=== PATIENT | female | born 1975 | race Asian ===

== ENCOUNTER 2019-01-04 17:11 | Inpatient (IN) | payer OTHER ==
--- NOTE | 2019-01-04 18:15 | PDOC ---
History of Present Illness - General Chief Complaint: Chest Pain Stated Complaint: SENT BY PCP Time Seen by Provider: 01/04/19 18:15 - History of Present Illness Initial Comments: 43 year old female PMH of HTN (labile) presenting with nausea, vomiting, and chest pain for the past few weeks with multiple ED visits with negative cardiac and abdominal workup. She saw Dr. Lucero who wanted to admit her for an endocrine workup. 01/04/19 18:31 Past History - Past Medical History Allergies/Adverse Reactions: Allergies Allergy/AdvReac Type Severity Reaction Status Date / Time Iodinated Contrast- Oral and Allergy Verified 01/04/19 17:27 IV Dye metoclopramide HCl AdvReac Verified 01/04/19 17:26 [From [facility]] Home Medications: Ambulatory Orders Carvedilol 3.125 mg PO DAILY 02/03/17 Chlorthalidone 25 mg PO DAILY 02/03/17 Duloxetine HCl [Cymbalta] 60 mg PO DAILY 02/03/17 Famotidine [Pepcid] 20 mg PO DAILY #7 tablet 02/03/17 Hydrocodone/Acetaminophen [Vicodin Es 7.5-300 mg Tablet] 1 each PO TID 02/03/17 Hydroxyzine HCl 50 mg PO BID 02/03/17 Methylprednisolone [Medrol Dose Justin] 4 mg PO ASDIR #21 tablet 02/03/17 Tizanidine HCl 4 mg PO TID 02/03/17 COPD: No HTN: Yes - Suicide/Smoking/Psychosocial Hx Smoking History: Never smoked Have you smoked in the past 12 months: No Hx Alcohol Use: No Drug/Substance Use Hx: No Substance Use Type: None *Physical Exam - Vital Signs Last Vital Signs Temp Pulse Resp BP Pulse Ox 97.4 F L 112 H 18 136/60 99 01/04/19 17:24 01/04/19 17:24 01/04/19 17:24 01/04/19 17:24 01/04/19 17:24 Moderate Sedation - Procedure Monitoring Vital Signs: Procedure Monitoring Vital Signs Temperature 97.4 F L 01/04/19 17:24 Pulse Rate 112 H 01/04/19 17:24 Respiratory Rate 18 01/04/19 17:24 Blood Pressure 136/60 01/04/19 17:24 O2 Sat by Pulse Oximetry (%) 99 01/04/19 17:24 *DC/Admit/Observation/Transfer - Referrals Referrals: Zak Bhandari MD [Primary Care Provider] - - Patient Instructions - Post Discharge Activity
[2019-01-04] MEDS ORDERED: SODIUM CHLORIDE 0.9% 500 ML INFUS.BAG IV ONE (18:41)
--- NOTE | 2019-01-04 19:07 | PDOC ---
Attending Attestation - HPI HPI: 01/04/19 21:32 The patient is a 43 year old female, with a significant past medical history of HTN (labile), who presents to the emergency department with, multiple weeks of chest pain with associated nausea and vomiting. Patient notes multiple visits to various ERs at which time she has had a negative stress test and ECHO. As per patients PCP Dr. Bhandari, he would like her admitted for endocrine workup. She denies recent fevers, chills, headache or dizziness. She denies recent diarrhea or constipation. She denies recent dysuria, frequency, urgency or hematuria. - Physicial Exam PE: 01/04/19 21:32 Agree with resident exam. <Cory Rios - Last Filed: 01/04/19 21:32> - Resident Resident Name: Harish Gee - ED Attending Attestation I have performed the following: I have examined & evaluated the patient, The case was reviewed & discussed with the resident, I agree w/resident's findings & plan - Medical Decision Making 01/04/19 21:46 43-year-old female sent in by her primary care physician for admission due to uncontrolled blood pressures <Megan Haro - Last Filed: 01/04/19 21:47> Attestations - Attestations 01/04/19 21:33 Documentation prepared by Cory Rios, acting as medical oncologist for Megan Haro DO. <Cory Rios - Last Filed: 01/04/19 21:32>
[2019-01-04 19:35] LABS: BASO % 0.5 % (0-2.0); EOS % 1.6 % (0-4.5); HEMATOCRIT 34.8 % (32.4-45.2); HEMOGLOBIN 11.8 GM/dL (10.7-15.3); LYMPH % 22.4 % (8-40); MCH 29.4 pg (25.7-33.7); MCHC 33.9 g/dl (32.0-36.0); MEAN CELL VOLUME 86.6 fl (80-96); MEAN PLT VOLUME 7.2 fl (7.5-11.1); NEUT % 66.5 % (42.8-82.8); PLATELET COUNT 349 K/MM3 (134-434); RBC 4.02 M/mm3 (3.60-5.2); RDW 14.8 % (11.6-15.6); WHITE BLOOD COUNT 7.2 K/mm3 (4.0-10.0)
[2019-01-04 19:49] LABS: INR 0.95 (0.83-1.09); PROTHROMBIN TIME (PATIENT) 11.2 SEC (9.7-13.0)
[2019-01-04 20:00] LABS: ALBUMIN 3.8 g/dl (3.4-5.0); ALK PHOS 105 U/L (45-117); ANION GAP 9 MMOL/L (8-16); BILIRUBIN,TOTAL 0.3 mg/dL (0.2-1); BLOOD UREA NITROGEN 19 mg/dL (7-18); CALCIUM 9.3 mg/dL (8.5-10.1); CHLORIDE 102 mmol/L (98-107); CO2 25 mmol/L (21-32); GLUCOSE,RANDOM 97 mg/dL (74-106); POTASSIUM 3.5 mmol/L (3.5-5.1); SGOT/AST 23 U/L (15-37); SGPT/ALT 41 U/L (13-61); SODIUM 136 mmol/L (136-145); TOT PROT 7.8 g/dl (6.4-8.2)
[2019-01-04 20:31] LABS: URINE APPEARANCE SLCLOUDY; URINE BILIRUBIN NEGATIVE (<2.0 mg/dL); URINE COLOR YELLOW; URINE GLUCOSE (UA) NEGATIVE (NEGATIVE); URINE KETONE NEGATIVE (NEGATIVE); URINE LEUK ESTERASE NEGATIVE (NEGATIVE); URINE NITRITE NEGATIVE (NEGATIVE); URINE PROTEIN 1+ (NEGATIVE); URINE UROBILINOGEN NEGATIVE mg/dL (0.2-1.0)
[2019-01-04 20:51] LABS: EPI CELLS MANY /HPF (FEW); URINE BACTERIA RARE /hpf (NONE SEEN); URINE HYALINE CAST 2 /lpf; URINE MUCUS FEW
--- NOTE | 2019-01-04 21:11 | HP ---
CHIEF COMPLAINT: chest pain PCP: Elisabet HISTORY OF PRESENT ILLNESS: 43 year old female, with a significant past medical history of labile hypertension,nausea vomiting,hypokalemia,chest pain,prior workup, gi and cardiac negative,has been on several antihypertensive meds which failed to control bp. she notes recent episode left her feeling light headed and nauseas. c/o some chest pain but recent negative cardiac stress test ER course was notable for: (1) cxr (2) lower ext vascular study (3) Recent Travel: no PAST MEDICAL HISTORY: labile hypertension PAST SURGICAL HISTORY: no Social History: Smoking:no Alcohol: no Drugs: no Family History: Allergies Iodinated Contrast- Oral and IV Dye Allergy (Verified 01/04/19 17:27) metoclopramide HCl [From Reglan] Adverse Reaction (Verified 01/04/19 17:26) STATES MAKE HER VOMIT MORE HOME MEDICATIONS: Home Medications Medication Instructions Recorded Cefuroxime Axetil [Cefuroxime] 250 mg PO BID 01/04/19 Clonidine Patch [Catapres Tts 0.1 mg TD WEEKLY 01/04/19 Patch -] Diazepam [Valium] 5 mg PO BID 01/04/19 Gabapentin 300 mg PO HS 01/04/19 Hydralazine HCl 25 mg PO TID 01/04/19 Hydroxyzine HCl 25 mg PO TID 01/04/19 Propranolol HCl 10 mg PO TID 01/04/19 Zolpidem Tartrate 10 mg PO HS 01/04/19 REVIEW OF SYSTEMS CONSTITUTIONAL: Absent: fever, chills, diaphoresis, generalized weakness, malaise, loss of appetite, weight change HEENT: Absent: rhinorrhea, nasal congestion, throat pain, throat swelling, difficulty swallowing, mouth swelling, ear pain, eye pain, visual changes CARDIOVASCULAR: Absent: syncope, palpitations, irregular heart rate, lightheadedness, peripheral edema present - chest pain, RESPIRATORY: Absent: cough, shortness of breath, dyspnea with exertion, orthopnea, wheezing, stridor, hemoptysis GASTROINTESTINAL: Absent: abdominal pain, abdominal distension, nausea, vomiting, diarrhea, constipation, melena, hematochezia GENITOURINARY: Absent: dysuria, frequency, urgency, hesitancy, hematuria, flank pain, genital pain MUSCULOSKELETAL: Absent, arthralgia, joint swelling, back pain, neck pain present- : myalgia SKIN: Absent: rash, itching, pallor HEMATOLOGIC/IMMUNOLOGIC: Absent: easy bleeding, easy bruising, lymphadenopathy, frequent infections ENDOCRINE: Absent: unexplained weight gain, unexplained weight loss, heat intolerance, cold intolerance NEUROLOGIC: Absent: headache, focal weakness or paresthesias, dizziness, unsteady gait, seizure, mental status changes, bladder or bowel incontinence PSYCHIATRIC: Absent: anxiety, depression, suicidal or homicidal ideation, hallucinations. PHYSICAL EXAMINATION Vital Signs - 24 hr 01/04/19 01/04/19 01/04/19 17:24 19:58 20:24 Temperature 97.4 F L Pulse Rate 112 H Pulse Rate [ 112 H Apical] Respiratory 18 20 Rate Blood Pressure 136/60 Blood Pressure 160/100 [Right Arm] O2 Sat by Pulse 99 99 100 Oximetry (%) GENERAL: Awake, alert, and fully oriented, in no acute distress. HEAD: Normal with no signs of trauma. EYES: Pupils equal, round and reactive to light, extraocular movements intact, sclera anicteric, conjunctiva clear. No lid lag. EARS, NOSE, THROAT: Ears normal, nares patent, oropharynx clear without exudates. Moist mucous membranes. NECK: Normal range of motion, supple without lymphadenopathy, JVD, or masses. LUNGS: Breath sounds equal, clear to auscultation bilaterally. No wheezes, and no crackles. No accessory muscle use. chest- anterior chest reproducible pain on lower sternal palpation HEART: Regular rate and rhythm, normal S1 and S2 without murmur, rub or gallop. ABDOMEN: Soft, nontender, not distended, normoactive bowel sounds, no guarding, no rebound, no masses. No hepatomegaly or splenomegaly. MUSCULOSKELETAL: Normal range of motion at all joints. No bony deformities or tenderness. No CVA tenderness. UPPER EXTREMITIES: 2+ pulses, warm, well-perfused. No cyanosis. No clubbing. No peripheral edema. LOWER EXTREMITIES: 2+ pulses, warm, well-perfused. No calf tenderness. No peripheral edema. NEUROLOGICAL: Cranial nerves II-XII intact. Normal speech. Normal gait. PSYCHIATRIC: Cooperative. Good eye contact. Appropriate mood and affect. SKIN: Warm, dry, normal turgor, no rashes or lesions noted, normal capillary refill. Laboratory Results - last 24 hr 02/27/19 02/27/19 02/27/19 18:38 18:38 18:38 WBC 7.2 RBC 4.02 Hgb 11.8 Hct 34.8 MCV 86.6 MCH 29.4 MCHC 33.9 RDW 14.8 Plt Count 349 MPV 7.2 L Absolute Neuts (auto) 4.8 Neutrophils % 66.5 Lymphocytes % 22.4 Monocytes % 9.0 Eosinophils % 1.6 Basophils % 0.5 Nucleated RBC % 0 PT with INR 11.20 INR 0.95 Sodium 136 Potassium 3.5 Chloride 102 Carbon Dioxide 25 Anion Gap 9 BUN 19 H Creatinine 1.0 Creat Clearance w eGFR > 60 Random Glucose 97 Calcium 9.3 Total Bilirubin 0.3 AST 23 ALT 41 Alkaline Phosphatase 105 Troponin I < 0.02 Total Protein 7.8 Albumin 3.8 TSH Free T4 Urine Color Urine Appearance Urine pH Ur Specific [place] Urine Protein Urine Glucose (UA) Urine Ketones Urine Blood Urine Nitrite Urine Bilirubin Urine Urobilinogen Ur Leukocyte Esterase Urine WBC (Auto) Urine RBC (Auto) Ur Epithelial Cells Urine Bacteria Hyaline Casts Urine Mucus Urine HCG, Qual 01/04/19 01/04/19 01/04/19 19:09 19:09 19:27 WBC RBC Hgb Hct MCV MCH MCHC RDW Plt Count MPV Absolute Neuts (auto) Neutrophils % Lymphocytes % Monocytes % Eosinophils % Basophils % Nucleated RBC % PT with INR INR Sodium Potassium Chloride Carbon Dioxide Anion Gap BUN Creatinine Creat Clearance w eGFR Random Glucose Calcium Total Bilirubin AST ALT Alkaline Phosphatase Troponin I Total Protein Albumin TSH 2.22 Free T4 0.96 Urine Color Urine Appearance Urine pH Ur Specific [place] Urine Protein Urine Glucose (UA) Urine Ketones Urine Blood Urine Nitrite Urine Bilirubin Urine Urobilinogen Ur Leukocyte Esterase Urine WBC (Auto) Urine RBC (Auto) Ur Epithelial Cells Urine Bacteria Hyaline Casts Urine Mucus Urine HCG, Qual Negative 01/04/19 19:47 WBC RBC Hgb Hct MCV MCH MCHC RDW Plt Count MPV Absolute Neuts (auto) Neutrophils % Lymphocytes % Monocytes % Eosinophils % Basophils % Nucleated RBC % PT with INR INR Sodium Potassium Chloride Carbon Dioxide Anion Gap BUN Creatinine Creat Clearance w eGFR Random Glucose Calcium Total Bilirubin AST ALT Alkaline Phosphatase Troponin I Total Protein Albumin TSH Free T4 Urine Color Yellow Urine Appearance Slcloudy Urine pH 6.0 Ur Specific [place] 1.021 Urine Protein 1+ H Urine Glucose (UA) Negative Urine Ketones Negative Urine Blood Negative Urine Nitrite Negative Urine Bilirubin Negative Urine Urobilinogen Negative Ur Leukocyte Esterase Negative Urine WBC (Auto) 3 Urine RBC (Auto) 1 Ur Epithelial Cells Many Urine Bacteria Rare Hyaline Casts 2 Urine Mucus Few Urine HCG, Qual ekg reviewed cxr reviewed ASSESSMENT/PLAN: #Labile hypertension refractory to several medications sent here by her PCP for workup -observation -dexamethasone suppresion test -check 24 hr urine 5hiaa -am cortisol -mri brain -renin -urine vma -aldosterone #Chest pain- reproducible, most likely costochondritis, recent negative cardiac stress test. trop neg, ekg w/ no ischemic changes -ibuprofen prn if chest pain #dvt ppx -heparin sc Visit type - Emergency Visit Emergency Visit: Yes ED Registration Date: 01/04/19 Care time: The patient presented to the Emergency Department on the above date and was hospitalized for further evaluation of their emergent condition. - New Patient This patient is new to me today: Yes Date on this admission: 01/05/19 - Critical Care Critical Care patient: No
[2019-01-04] MEDS ORDERED: cloNIDine HCL 0.1 MG TABLET PO ONE (21:19)
[2019-01-04] MEDS ORDERED: cloNIDine HCL 0.1 MG TABLET ONE (22:21)
[2019-01-04] MEDS ORDERED: diazePAM 5 MG TABLET ONE (22:21)
[2019-01-04] MEDS ORDERED: hydrALAZINE HCL 25 MG TABLET (FP) ONE (22:21)
[2019-01-04] MEDS ORDERED: HEPARIN NA (PORCINE) 5,000 UNITS/ML 1ML VIAL ONE (22:22)
[2019-01-04] MEDS ORDERED: GABAPENTIN 100 MG CAPSULE (FP) ONE (22:22)
[2019-01-04] MEDS: diazePAM 5 MG TABLET PO SCH (22:36)
[2019-01-04] MEDS: hydrALAZINE HCL 25 MG TABLET (FP) PO SCH (22:36)
[2019-01-04] MEDS: HEPARIN NA (PORCINE) 5,000 UNITS/ML 1ML VIAL SQ SCH (22:36)
[2019-01-04] MEDS: GABAPENTIN 300 MG CAPSULE (FP) PO SCH (22:36)
--- NOTE | 2019-01-05 00:21 | CONSULT ---
Consult Consult Specialty:: endocrine Reason for Consultation:: uncontrolled hypertension - History of Present Illness Chief Complaint: nausea and vomiting weakness History of Present Illness: 43 year old female, with a significant past medical history of labile hypertension,nausea vomiting,hypokalemia,chest pain,prior workup, gi and cardiac negative,has been on several antihypertensive meds which failed to control bp. she notes recent episode left her feeling light headed and nauseas.she denies fever, cough diarhea or rash. - Past Medical History Cardio/Vascular: Yes: HTN Gastrointestinal: Yes: Irritable Bowel Disease Renal/: Yes: Hematuria - Alcohol/Substance Use Hx Alcohol Use: No - Smoking History Smoking history: Never smoked Have you smoked in the past 12 months: No Home Medications - Allergies Allergies/Adverse Reactions: Allergies Allergy/AdvReac Type Severity Reaction Status Date / Time Iodinated Contrast- Oral and Allergy Verified 01/04/19 17:27 IV Dye metoclopramide HCl AdvReac Verified 01/04/19 17:26 [From Reglan] - Home Medications Home Medications: Ambulatory Orders Cefuroxime Axetil [Cefuroxime] 250 mg PO BID 01/04/19 Clonidine Patch [Catapres Tts Patch -] 0.1 mg TD WEEKLY 01/04/19 Diazepam [Valium] 5 mg PO BID 01/04/19 Gabapentin 300 mg PO HS 01/04/19 Hydralazine HCl 25 mg PO TID 01/04/19 Hydroxyzine HCl 25 mg PO TID 01/04/19 Propranolol HCl 10 mg PO TID 01/04/19 Zolpidem Tartrate 10 mg PO HS 01/04/19 Review of Systems - Review of Systems Constitutional: reports: Lethargy, Loss of Appetite, Weakness Eyes: reports: Blurred Vision HENT: reports: No Symptoms Neck: reports: No Symptoms Cardiovascular: reports: Shortness of Breath Respiratory: reports: Exercise Intolerance, SOB on Exertion Gastrointestinal: reports: Bloating, Indigestion Genitourinary: reports: No Symptoms Breasts: reports: No Symptoms Reported Musculoskeletal: reports: Muscle Cramps, Muscle Weakness Neurological: reports: Numbness, Weakness Physical Exam Vital Signs: Vital Signs Temperature 97.4 F L 01/04/19 17:24 Pulse Rate 112 H 01/04/19 20:24 Respiratory Rate 20 01/04/19 20:24 Blood Pressure 160/100 01/04/19 20:24 O2 Sat by Pulse Oximetry (%) 100 01/04/19 20:24 Constitutional: Yes: Anxious Eyes: Yes: EOM Intact HENT: Yes: Normocephalic Neck: Yes: Trachea Midline Cardiovascular: Yes: Regular Rate and Rhythm Respiratory: Yes: CTA Bilaterally Gastrointestinal: Yes: Normal Bowel Sounds, Abdomen, Obese ...Rectal Exam: Yes: Deferred Renal/: Yes: WNL Musculoskeletal: Yes: Back Pain, Muscle Pain, Muscle Weakness Extremities: Yes: WNL Edema: Yes Edema: LLE: Trace, RLE: Trace Neurological: Yes: Alert, Oriented Labs: CBC, BMP 01/04/19 18:38 01/04/19 18:38 Problem List - Problems (1) Hypertension Code(s): I10 - ESSENTIAL (PRIMARY) HYPERTENSION Qualifiers: Hypertension 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 (2) Nausea and vomiting Code(s): R11.2 - NAUSEA WITH VOMITING, UNSPECIFIED Assessment/Plan hypertension uncontrolled nausea vomiting 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 Abnormal Lab Results 01/04/19 01/04/19 01/04/19 18:38 18:38 19:47 MPV 7.2 L BUN 19 H Urine Protein 1+ H Laboratory Results - last 24 hr 01/04/19 01/04/19 01/04/19 18:38 18:38 18:38 WBC 7.2 RBC 4.02 Hgb 11.8 Hct 34.8 MCV 86.6 MCH 29.4 MCHC 33.9 RDW 14.8 Plt Count 349 MPV 7.2 L Absolute Neuts (auto) 4.8 Neutrophils % 66.5 Lymphocytes % 22.4 Monocytes % 9.0 Eosinophils % 1.6 Basophils % 0.5 Nucleated RBC % 0 PT with INR 11.20 INR 0.95 D-Dimer Sodium 136 Potassium 3.5 Chloride 102 Carbon Dioxide 25 Anion Gap 9 BUN 19 H Creatinine 1.0 Creat Clearance w eGFR > 60 Random Glucose 97 Calcium 9.3 Total Bilirubin 0.3 AST 23 ALT 41 Alkaline Phosphatase 105 Troponin I < 0.02 Total Protein 7.8 Albumin 3.8 Total Amylase Lipase TSH Free T4 Urine Color Urine Appearance Urine pH Ur Specific [place] Urine Protein Urine Glucose (UA) Urine Ketones Urine Blood Urine Nitrite Urine Bilirubin Urine Urobilinogen Ur Leukocyte Esterase Urine WBC (Auto) Urine RBC (Auto) Ur Epithelial Cells Urine Bacteria Hyaline Casts Urine Mucus Urine HCG, Qual 01/04/19 01/04/19 01/04/19 19:09 19:09 19:27 WBC RBC Hgb Hct MCV MCH MCHC RDW Plt Count MPV Absolute Neuts (auto) Neutrophils % Lymphocytes % Monocytes % Eosinophils % Basophils % Nucleated RBC % PT with INR INR D-Dimer Sodium Potassium Chloride Carbon Dioxide Anion Gap BUN Creatinine Creat Clearance w eGFR Random Glucose Calcium Total Bilirubin AST ALT Alkaline Phosphatase Troponin I Total Protein Albumin Total Amylase 53 Lipase 195 TSH 2.22 Free T4 0.96 Urine Color Urine Appearance Urine pH Ur Specific [place] Urine Protein Urine Glucose (UA) Urine Ketones Urine Blood Urine Nitrite Urine Bilirubin Urine Urobilinogen Ur Leukocyte Esterase Urine WBC (Auto) Urine RBC (Auto) Ur Epithelial Cells Urine Bacteria Hyaline Casts Urine Mucus Urine HCG, Qual Negative 01/04/19 01/04/19 19:47 20:10 WBC RBC Hgb Hct MCV MCH MCHC RDW Plt Count MPV Absolute Neuts (auto) Neutrophils % Lymphocytes % Monocytes % Eosinophils % Basophils % Nucleated RBC % PT with INR INR D-Dimer < 215 Sodium Potassium Chloride Carbon Dioxide Anion Gap BUN Creatinine Creat Clearance w eGFR Random Glucose Calcium Total Bilirubin AST ALT Alkaline Phosphatase Troponin I Total Protein Albumin Total Amylase Lipase TSH Free T4 Urine Color Yellow Urine Appearance Slcloudy Urine pH 6.0 Ur Specific [place] 1.021 Urine Protein 1+ H Urine Glucose (UA) Negative Urine Ketones Negative Urine Blood Negative Urine Nitrite Negative Urine Bilirubin Negative Urine Urobilinogen Negative Ur Leukocyte Esterase Negative Urine WBC (Auto) 3 Urine RBC (Auto) 1 Ur Epithelial Cells Many Urine Bacteria Rare Hyaline Casts 2 Urine Mucus Few Urine HCG, Qual plan: dexamethasone suppresion test check 24 hr urine 5hiaa am cortisol mri brain w/w out dye renin urine vma aldosterone
[2019-01-05] MEDS ORDERED: DEXAMETHASONE 0.5 MG TABLET PO ONE (00:45)
[2019-01-05] MEDS ORDERED: DEXAMETHASONE SOD PHOSPHATE 4 MG/1 ML VIAL ONE (01:20)
[2019-01-05] MEDS: hydrALAZINE HCL 25 MG TABLET (FP) PO SCH ×3 (08:32→21:43)
[2019-01-05 09:27] LABS: HEMATOCRIT 30.2 % (32.4-45.2); HEMOGLOBIN 10.5 GM/dL (10.7-15.3); MCH 30.1 pg (25.7-33.7); MCHC 34.8 g/dl (32.0-36.0); MEAN CELL VOLUME 86.4 fl (80-96); MEAN PLT VOLUME 7.2 fl (7.5-11.1); PLATELET COUNT 322 K/MM3 (134-434); RDW 14.5 % (11.6-15.6); WHITE BLOOD COUNT 5.7 K/mm3 (4.0-10.0)
[2019-01-05 09:50] LABS: ANION GAP 8 MMOL/L (8-16); BLOOD UREA NITROGEN 14 mg/dL (7-18); CALCIUM 8.1 mg/dL (8.5-10.1); CHLORIDE 107 mmol/L (98-107); CO2 23 mmol/L (21-32); GLUCOSE,RANDOM 115 mg/dL (74-106); MAGNESIUM 1.7 mg/dL (1.8-2.4); POTASSIUM 4.5 mmol/L (3.5-5.1); SODIUM 138 mmol/L (136-145)
[2019-01-05] MEDS ORDERED: cloNIDine-TTS 0.1 MG/24 HRS PATCH.TDWK TD SCH (10:00)
[2019-01-05] MEDS: diazePAM 5 MG TABLET PO SCH ×2 (10:49→21:43)
[2019-01-05] MEDS: HEPARIN NA (PORCINE) 5,000 UNITS/ML 1ML VIAL SQ SCH ×2 (10:49→21:43)
--- NOTE | 2019-01-05 13:28 | PN ---
Progress Note, Physician Chief Complaint: BP is low side mri of brain ordered vitals 103/49 and hr 74 - Current Medication List Current Medications: Active Medications Clonidine HCl (Catapres Tts Patch -) 0.1 mg TD Q7D@1000 [facility] Diazepam (Valium -) 5 mg PO BID [facility] Last Admin: 01/05/19 10:49 Dose: 5 mg Gabapentin (Neurontin -) 300 mg PO HS [facility] Last Admin: 01/04/19 22:36 Dose: 300 mg Heparin Sodium (Porcine) (Heparin -) 5,000 unit SQ BID [facility] Last Admin: 01/05/19 10:49 Dose: 5,000 unit Hydralazine HCl (Apresoline -) 25 mg PO TID [facility] Propranolol HCl (Inderal -) 10 mg PO TID [facility] Last Admin: 01/05/19 08:32 Dose: Not Given Zolpidem Tartrate (Ambien -) 10 mg PO HS PRN PRN Reason: INSOMNIA Stop: 01/07/19 21:59 - Objective Vital Signs: Vital Signs Temperature 98.0 F 01/05/19 10:00 Pulse Rate 70 01/05/19 10:00 Respiratory Rate 18 01/05/19 10:00 Blood Pressure 89/56 L 01/05/19 10:00 O2 Sat by Pulse Oximetry (%) 97 01/05/19 08:44 Cardiovascular: Yes: Regular Rate and Rhythm, S1, S2 Respiratory: Yes: CTA Bilaterally Gastrointestinal: Yes: Normal Bowel Sounds, Soft Edema: No Labs: CBC, BMP 01/05/19 08:30 01/05/19 08:30 INR, PTT INR 0.95 (0.83-1.09) 01/04/19 18:38 Problem List - Problems (1) Hypertension Assessment/Plan: hold hydralazine and inderal MRI of brain to look at pituatry gland appreciate endocrine consult dexamethesone given urine aldosterone,renin,prolactin 5 HIAA ordered clonidine patch weekly will recheck BP again labile BP with nausea /vomitting- dvt ppx cardiology consult magnesium repleted Code(s): I10 - ESSENTIAL (PRIMARY) HYPERTENSION Qualifiers: Hypertension 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
[2019-01-05] MEDS ORDERED: MAGNESIUM SULF 50% (8.12 MEQ/2 ML-1 GM VIAL) IVPB ONE (13:31)
--- NOTE | 2019-01-05 14:07 | PN ---
Progress Note (short form) - Note Progress Note: Asked to see pt, seen by Dr Salina Morrison in the past, wants to see that group as they have her records.
--- NOTE | 2019-01-05 14:36 | CON.CARD ---
Consult Consult Specialty:: Cardiology Referred by:: Medicine Reason for Consultation:: chest pain, HTN - History of Present Illness Chief Complaint: chest pain History of Present Illness: 43F h/o labile HTN, chest pain p/w lightheadedness, nausea, chest pain. Referred by PCP for HTN workup, also had chest pain which is exertional, not reproducible. Prior patient of Dr. 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 Had undergone cardiac workup in the past including echo , stress test as well as workup for secondary HTN including CTA to evaluate aorta and renal ultrasounds, unremarkable. Sees Dr. Bhandari as well, admitted for HTN workup. Currently no chest pain, palps, dyspnea, dizziness. Notes labile BP at home ranging from 70s/40s to 180s/110s and feels chest pain and palps when BP very high or very low. - Past Medical History Cardio/Vascular: Yes: HTN Gastrointestinal: Yes: Inflamatory Bowel Disease, Irritable Bowel Disease Renal/: Yes: Hematuria - Alcohol/Substance Use Hx Alcohol Use: No - Smoking History Smoking history: Never smoked Have you smoked in the past 12 months: No Home Medications - Allergies Allergies/Adverse Reactions: Allergies Allergy/AdvReac Type Severity Reaction Status Date / Time Iodinated Contrast- Oral and Allergy Verified 01/04/19 17:27 IV Dye metoclopramide HCl AdvReac Verified 01/04/19 17:26 [From Reglan] - Home Medications Home Medications: Ambulatory Orders Cefuroxime Axetil [Cefuroxime] 250 mg PO BID 01/04/19 Clonidine Patch [Catapres Tts Patch -] 0.1 mg TD WEEKLY 01/04/19 Diazepam [Valium] 5 mg PO BID 01/04/19 Gabapentin 300 mg PO HS 01/04/19 Hydralazine HCl 25 mg PO TID 01/04/19 Hydroxyzine HCl 25 mg PO TID 01/04/19 Propranolol HCl 10 mg PO TID 01/04/19 Zolpidem Tartrate 10 mg PO HS 01/04/19 Family Disease History - Family Disease History Family History: Unremarkable Review of Systems - Review of Systems Constitutional: reports: No Symptoms Eyes: reports: No Symptoms HENT: reports: No Symptoms Neck: reports: No Symptoms Cardiovascular: reports: No Symptoms Respiratory: reports: No Symptoms Gastrointestinal: reports: No Symptoms Genitourinary: reports: No Symptoms Musculoskeletal: reports: No Symptoms Integumentary: reports: No Symptoms Neurological: reports: No Symptoms Endocrine: reports: No Symptoms Hematology/Lymphatic: reports: No Symptoms Psychiatric: reports: No Symptoms Vital Signs: Vital Signs Temperature 98.4 F 01/05/19 13:44 Pulse Rate 63 01/05/19 13:44 Respiratory Rate 18 01/05/19 13:44 Blood Pressure 110/74 01/05/19 13:44 O2 Sat by Pulse Oximetry (%) 97 01/05/19 08:44 Constitutional: Yes: No Distress, Calm Eyes: Yes: Conjunctiva Clear, EOM Intact HENT: Yes: Atraumatic, Normocephalic Neck: Yes: Supple, Trachea Midline Respiratory: Yes: Regular, CTA Bilaterally Gastrointestinal: Yes: Normal Bowel Sounds, Soft Cardiovascular: Yes: Regular Rate and Rhythm JVD: No Carotid Bruit: No PMI: Non-Displaced Heart Sounds: Yes: S1, S2 Musculoskeletal: No: Back Pain Extremities: No: Cold Edema: No Peripheral Pulses WNL: Yes Peripheral Pulses: 2+ Left Doralis Pedis, 2+ Right Dorsalis Pedis Integumentary: No: Jaundice Neurological: Yes: Alert, Oriented Psychiatric: Yes: Alert, Oriented - Other Data Labs, Other Data: CBC, BMP 01/05/19 08:30 01/05/19 08:30 INR, PTT INR 0.95 (0.83-1.09) 01/04/19 18:38 Troponin, BNP 01/04/19 18:38 Troponin I < 0.02 Troponin, BNP 01/04/19 18:38 Troponin I < 0.02 Assessment/Plan echo with definity 09/2017: EF 65-70%. nl diastolic fn/nl la size. nl rv. No rvsp. no coarct. nl ivc. echo 11/2016: tds. Nl Nl lv/rv/valves. Equalization of E and A. No coarct. 11/2017 ambulatory bp monitoring, results reviewed. see emr 11/2016 carotid u/s wnl. EKG: sinus tachycardia, no ischemic changes CXR:no acute process lower ext ultrasound: no DVT HTN - undergoing workup for secondary HTN - prior workup with Dr. Celis no coarctation, renal stenosis, AIDEN, labs unremarkable - hx LIZA on diuretic and ACEI, dizziness on coreg - on propranolol, hydralazine and clonidine, continue for now sinus tachycardia - noted at prior ER and office visits, event monitor 05/2018 showed sinus tachycardia associated with palpitations Chest pain - trop neg x 1, EKG similar to prior, less consistent with ACS - would defer further cardiac workup, prior testing unremarkable lung nodule - noted on prior imaging, per Dr. Celis recommended f/u CT 02/2018, not done yet
[2019-01-05] MEDS ORDERED: PT OWN MED DRAWER 7, Y5N ONE ×2 (15:15→21:13)
[2019-01-05 15:50] VITALS: BMI 26.5
--- NOTE | 2019-01-05 16:55 | EKG ---
Test Reason : Blood Pressure : / mmHG Vent. Rate : 117 BPM Atrial Rate : 117 BPM P-R Int : 130 ms QRS Dur : 076 ms QT Int : 344 ms P-R-T Axes : 042 007 013 degrees QTc Int : 479 ms SINUS TACHYCARDIA POSSIBLE LEFT ATRIAL ENLARGEMENT BORDERLINE ECG NO PREVIOUS ECGS AVAILABLE Confirmed by CARINA TAVERAS MD ([id number]) on 01/05/2019 4:55:09 PM Referred By: Confirmed By:CARINA TAVERAS MD
[2019-01-05] MEDS: ZOLPIDEM TARTRATE 5 MG TABLET PO PRN (21:42)
[2019-01-05] MEDS: GABAPENTIN 300 MG CAPSULE (FP) PO SCH (21:43)
[2019-01-06] MEDS: hydrALAZINE HCL 25 MG TABLET (FP) PO SCH (06:38)
[2019-01-06 08:32] LABS: ALBUMIN 3.1 g/dl (3.4-5.0); ALK PHOS 74 U/L (45-117); ANION GAP 9 MMOL/L (8-16); BILIRUBIN,TOTAL 0.1 mg/dL (0.2-1); BLOOD UREA NITROGEN 14 mg/dL (7-18); CALCIUM 8.5 mg/dL (8.5-10.1); CHLORIDE 103 mmol/L (98-107); CO2 24 mmol/L (21-32); GLUCOSE,RANDOM 123 mg/dL (74-106); MAGNESIUM 1.6 mg/dL (1.8-2.4); SGOT/AST 20 U/L (15-37); SGPT/ALT 32 U/L (13-61); SODIUM 136 mmol/L (136-145); TOT PROT 6.5 g/dl (6.4-8.2)
[2019-01-06] MEDS ORDERED: COSYNTROPIN 0.25 MG VIAL IVPUSH ONE (10:00)
[2019-01-06] MEDS: HEPARIN NA (PORCINE) 5,000 UNITS/ML 1ML VIAL SQ SCH ×2 (10:36→22:24)
[2019-01-06] MEDS: diazePAM 5 MG TABLET PO SCH ×2 (10:36→22:22)
--- NOTE | 2019-01-06 11:19 | PN ---
Progress Note, Physician Chief Complaint: Sinus tachycardia Orthostatic hypotension Labile HTN Anxiety History of Present Illness: NAD Vitals reviewed + orthostatic bp Seen by cardiology labs unremarkable Endocrine workup pending - Current Medication List Current Medications: Active Medications Clonidine HCl (Catapres Tts Patch -) 0.1 mg TD Q7D@1000 [facility] Last Admin: 01/05/19 18:09 Dose: 0.1 mg Diazepam (Valium -) 5 mg PO BID [facility] Last Admin: 01/06/19 10:36 Dose: 5 mg Gabapentin (Neurontin -) 300 mg PO HS [facility] Last Admin: 01/05/19 21:43 Dose: 300 mg Heparin Sodium (Porcine) (Heparin -) 5,000 unit SQ BID [facility] Last Admin: 01/06/19 10:36 Dose: Not Given Hydralazine HCl (Apresoline -) 25 mg PO TID [facility] Last Admin: 01/06/19 06:38 Dose: Not Given Propranolol HCl (Inderal -) 10 mg PO TID [facility] Last Admin: 01/06/19 06:38 Dose: Not Given Zolpidem Tartrate (Ambien -) 10 mg PO HS PRN PRN Reason: INSOMNIA Stop: 01/07/19 21:59 Last Admin: 01/05/19 21:42 Dose: 10 mg - Objective Vital Signs: Vital Signs Temperature 97.6 F 01/06/19 10:00 Pulse Rate 62 01/06/19 10:11 Respiratory Rate 18 01/06/19 10:00 Blood Pressure 116/73 01/06/19 10:11 O2 Sat by Pulse Oximetry (%) 97 01/06/19 03:00 Constitutional: Yes: Well Nourished, No Distress, Anxious Cardiovascular: Yes: Regular Rate and Rhythm Respiratory: Yes: Regular Gastrointestinal: Yes: WNL Genitourinary: Yes: WNL Musculoskeletal: Yes: WNL Extremities: Yes: WNL Edema: No Peripheral Pulses WNL: Yes Neurological: Yes: Alert, Oriented Psychiatric: Yes: Alert, Oriented Labs: CBC, BMP 01/05/19 08:30 01/06/19 06:20 INR, PTT INR 0.95 (0.83-1.09) 01/04/19 18:38 Problem List - Problems (1) Orthostatic hypotension Assessment/Plan: -recorded -cardiology aware -D/C hydralazine+ propranolol -Continue Clonidine patch 0.1 mg weekly -compression stockings -Endocrine workup pending Code(s): I95.1 - ORTHOSTATIC HYPOTENSION (2) Labile hypertension Assessment/Plan: -recorded -Seen by cardiology -cardiology aware -D/C hydralazine+ propranolol -Continue Clonidine patch 0.1 mg weekly -compression stockings -Endocrine workup pending -echo 11/2016: tds. Nl Nl lv/rv/valves. Equalization of E and A. No coarct. -MRI brain without contrast, r/o pituitary adenoma/tumor Code(s): R09.89 - OTH SYMPTOMS AND SIGNS INVOLVING THE CIRC AND RESP SYSTEMS (3) Anxiety Assessment/Plan: -Valium + hydroxyzine at home-continue Code(s): F41.9 - ANXIETY DISORDER, UNSPECIFIED (4) Nausea and vomiting Assessment/Plan: -likely 2/2 to hypotension+ anxiety Code(s): R11.2 - NAUSEA WITH VOMITING, UNSPECIFIED Assessment/Plan see problem list Self ambulatory
--- NOTE | 2019-01-06 11:21 | PN ---
Progress Note (short form) - Note Progress Note: s: no cp sob palps dizzy o: Vital Signs Period Temp Pulse Resp BP Sys/Ramos Pulse Ox Last 24 Hr 97.4 F-98.4 F 51-79 18-18 87-123/59-80 97-97 Constitutional: Yes: No Distress, Calm Eyes: Yes: Conjunctiva Clear Neck: Yes: Supple, Trachea Midline Respiratory: Yes: Regular, CTA Bilaterally Gastrointestinal: Yes: Normal Bowel Sounds, Soft Cardiovascular: Yes: Regular Rate and Rhythm JVD: No Heart Sounds: Yes: S1, S2 Musculoskeletal: No: Back Pain Extremities: No: Cold Edema: No Integumentary: No: Jaundice Neurological: Yes: Alert, Oriented Psychiatric: Yes: Alert, Oriented Current Medications Generic Name Dose Route Start Last Admin Trade Name Freq PRN Reason Stop Dose Admin Clonidine HCl 0.1 mg 01/05/19 10:00 01/05/19 18:09 Catapres Tts Patch - TD 0.1 mg Q7D@1000 [facility] Administration Diazepam 5 mg 01/04/19 22:00 01/06/19 10:36 Valium - PO 5 mg BID [facility] Administration Gabapentin 300 mg 01/04/19 22:00 01/05/19 21:43 Neurontin - PO 300 mg HS [facility] Administration Heparin Sodium (Porcine) 5,000 unit 01/04/19 22:00 01/06/19 10:36 Heparin - SQ Not Given BID [facility] Hydroxyzine HCl 25 mg 01/06/19 14:00 Atarax - PO TID [facility] Zolpidem Tartrate 10 mg 01/04/19 22:00 01/05/19 21:42 Ambien - PO 01/07/19 21:59 10 mg HS PRN Administration INSOMNIA CBC, BMP 01/05/19 08:30 01/06/19 06:20 echo with definity 09/2017: EF 65-70%. nl diastolic fn/nl la size. nl rv. No rvsp. no coarct. nl ivc. echo 11/2016: tds. Nl Nl lv/rv/valves. Equalization of E and A. No coarct. 11/2017 ambulatory bp monitoring, results reviewed. see emr 11/2016 carotid u/s wnl. EKG: sinus tachycardia, no ischemic changes CXR:no acute process lower ext ultrasound: no DVT Assessment/Plan HTN - undergoing workup for secondary HTN - prior workup with Dr. Celis no coarctation, renal stenosis, AIDEN, labs unremarkable - hx LIZA on diuretic and ACEI, dizziness on coreg - on propranolol, hydralazine and clonidine patch but home bp log for past 2 weeks shows hypotension daily and here with low bp and +ortho vitals as well, so will dc hydralazine and inderal. Cont clonidine for now. If bp still low would dc clonidine patch and change to just hydralazine for now. sinus tachycardia - benign, noted at prior ER and office visits, event monitor 05/2018 showed sinus tachycardia associated with palpitations Chest pain - no signs acs - would defer further cardiac workup, prior testing unremarkable lung nodule - noted on prior imaging, repeat ct chest here shows no nodules
[2019-01-06] MEDS: MAGNESIUM OXIDE 400 MG TABLET (FP) PO SCH ×2 (12:24→22:22)
--- NOTE | 2019-01-06 12:24 | DS ---
Physical Examination Vital Signs: Vital Signs Temperature 97.6 F 01/06/19 10:00 Pulse Rate 62 01/06/19 10:11 Respiratory Rate 18 01/06/19 10:00 Blood Pressure 116/73 01/06/19 10:11 O2 Sat by Pulse Oximetry (%) 97 01/06/19 03:00 Findings/Remarks: 43F h/o labile HTN, chest pain p/w lightheadedness, nausea, chest pain. Referred by PCP for HTN workup, also had chest pain which is exertional, not reproducible. Prior patient of Dr. Celis, sees dictaphone operator Dr. Pardo at [facility] now. Had undergone cardiac workup in the past including echo , stress test as well as workup for secondary HTN including CTA to evaluate aorta and renal ultrasounds, unremarkable. Sees Dr. Bhandari as well, admitted for HTN workup. Currently no chest pain, palps, dyspnea, dizziness. Notes labile BP at home ranging from 70s/40s to 180s/110s and feels chest pain and palps when BP very high or very low. Constitutional: Yes: Well Nourished, No Distress, Calm Cardiovascular: Yes: Regular Rate and Rhythm Respiratory: Yes: Regular Gastrointestinal: Yes: Normal Bowel Sounds, Soft Musculoskeletal: Yes: WNL Extremities: Yes: WNL Edema: No Peripheral Pulses WNL: Yes Neurological: Yes: Alert, Oriented Psychiatric: Yes: Alert, Oriented Labs: CBC, BMP 01/05/19 08:30 01/06/19 06:20 Discharge Summary Reason For Visit: LABILE HYPERTENSION,TACHYCARDIA,CHEST PAIN Current Active Problems Anxiety (Acute) Labile hypertension (Acute) Nausea and vomiting (Acute) Orthostatic hypotension (Acute) Hospital Course: Laboratory Last Values WBC 5.7 K/mm3 (4.0-10.0) 01/05/19 08:30 RBC 3.50 M/mm3 (3.60-5.2) L 01/05/19 08:30 Hgb 10.5 GM/dL (10.7-15.3) L 01/05/19 08:30 Hct 30.2 % (32.4-45.2) L 01/05/19 08:30 MCV 86.4 fl (80-96) 01/05/19 08:30 MCH 30.1 pg (25.7-33.7) 01/05/19 08:30 MCHC 34.8 g/dl (32.0-36.0) 01/05/19 08:30 RDW 14.5 % (11.6-15.6) 01/05/19 08:30 Plt Count 322 K/MM3 (134-434) 01/05/19 08:30 MPV 7.2 fl (7.5-11.1) L 01/05/19 08:30 Absolute Neuts (auto) 4.8 K/mm3 (1.5-8.0) 01/04/19 18:38 Neutrophils % 66.5 % (42.8-82.8) 01/04/19 18:38 Lymphocytes % 22.4 % (8-40) 01/04/19 18:38 Monocytes % 9.0 % (3.8-10.2) 01/04/19 18:38 Eosinophils % 1.6 % (0-4.5) 01/04/19 18:38 Basophils % 0.5 % (0-2.0) 01/04/19 18:38 Nucleated RBC % 0 % (0-0) 01/04/19 18:38 PT with INR 11.20 SEC (9.7-13.0) 01/04/19 18:38 INR 0.95 (0.83-1.09) 01/04/19 18:38 D-Dimer < 215 ng/ml (0-500) 01/04/19 20:10 Sodium 136 mmol/L (136-145) 01/06/19 06:20 Potassium 4.0 mmol/L (3.5-5.1) 01/06/19 06:20 Chloride 103 mmol/L (98-107) 01/06/19 06:20 Carbon Dioxide 24 mmol/L (21-32) 01/06/19 06:20 Anion Gap 9 MMOL/L (8-16) 01/06/19 06:20 BUN 14 mg/dL (7-18) 01/06/19 06:20 Creatinine 1.0 mg/dL (0.55-1.3) 01/06/19 06:20 Creat Clearance w eGFR > 60 (>60) 01/06/19 06:20 Random Glucose 123 mg/dL (74-106) H 01/06/19 06:20 Calcium 8.5 mg/dL (8.5-10.1) 01/06/19 06:20 Magnesium 1.6 mg/dL (1.8-2.4) L 01/06/19 06:20 Total Bilirubin 0.1 mg/dL (0.2-1) L 01/06/19 06:20 AST 20 U/L (15-37) 01/06/19 06:20 ALT 32 U/L (13-61) 01/06/19 06:20 Alkaline Phosphatase 74 U/L (45-117) 01/06/19 06:20 Troponin I < 0.02 ng/ml (0.00-0.05) 01/04/19 18:38 Total Protein 6.5 g/dl (6.4-8.2) 01/06/19 06:20 Albumin 3.1 g/dl (3.4-5.0) L 01/06/19 06:20 Total Amylase 53 U/L (25-115) 01/04/19 19:09 Lipase 195 U/L (73-393) 01/04/19 19:09 TSH 2.22 uIU/ml (0.358-3.74) 01/04/19 19:09 Free T4 0.96 ng/dl (0.76-1.46) 01/04/19 19:09 Cortisol AM Sample 1.7 ug/dL (.) 01/05/19 08:30 Urine Color Yellow 01/04/19 19:47 Urine Appearance Slcloudy 01/04/19 19:47 Urine pH 6.0 (5.0-8.0) 01/04/19 19:47 Ur Specific [place] 1.021 (1.010-1.035) 01/04/19 19:47 Urine Protein 1+ (NEGATIVE) H 01/04/19 19:47 Urine Glucose (UA) Negative (NEGATIVE) 01/04/19 19:47 Urine Ketones Negative (NEGATIVE) 01/04/19 19:47 Urine Blood Negative (NEGATIVE) 01/04/19 19:47 Urine Nitrite Negative (NEGATIVE) 01/04/19 19:47 Urine Bilirubin Negative (<2.0 mg/dL) 01/04/19 19:47 Urine Urobilinogen Negative mg/dL (0.2-1.0) 01/04/19 19:47 Ur Leukocyte Esterase Negative (NEGATIVE) 01/04/19 19:47 Urine WBC (Auto) 3 /hpf (3-5) 01/04/19 19:47 Urine RBC (Auto) 1 /hpf (0-3) 01/04/19 19:47 Ur Epithelial Cells Many /HPF (FEW) 01/04/19 19:47 Urine Bacteria Rare /hpf (NONE SEEN) 01/04/19 19:47 Hyaline Casts 2 /lpf 01/04/19 19:47 Urine Mucus Few 01/04/19 19:47 Urine HCG, Qual Negative 01/04/19 19:27 Microbiology 01/04/19 19:27 Urine - Urine Clean Catch Urine Culture - Final Contaminated: Please Repeat Vital Signs Temp 97.6 F 01/06/19 10:00 Pulse 62 01/06/19 10:11 Resp 18 01/06/19 10:00 BP 116/73 01/06/19 10:11 Pulse Ox 97 01/06/19 03:00 Intake & Output 01/05/19 01/06/19 01/06/19 23:59 11:59 23:59 Intake Total 900 Balance 900 Weight 61.689 kg Intake: IVPB 100 Oral 800 Other: Voiding Method Toilet Toilet # Unmeasured Voids Void 2 3 Bowel Movement No No Height 5 ft Body Mass Index (BMI) 26.5 Condition: Stable - Instructions Diet, Activity, Other Instructions: MRI brain with and without contrast outpatient Referrals: Zak Bhandari MD [Primary Care Provider] - Disposition: HOME - Home Medications Comprehensive Discharge Medication List: Ambulatory Orders Cefuroxime Axetil [Cefuroxime] 250 mg PO BID 01/04/19 Clonidine Patch [Catapres Tts Patch -] 0.1 mg TD WEEKLY 01/04/19 Gabapentin 300 mg PO HS 01/04/19 Zolpidem Tartrate 10 mg PO HS 01/04/19 Diazepam [Valium] 5 mg PO DAILY PRN #5 tablet MDD 1 01/06/19 Magnesium Oxide [Mag-Ox -] 400 mg PO BID #60 tablet 01/06/19
[2019-01-06] MEDS ORDERED: PT OWN MED DRAWER 7, Y5N ONE ×2 (13:45→21:52)
[2019-01-06] MEDS: hydrOXYzine HCL 25 MG TABLET (FP) PO SCH ×2 (14:16→22:22)
[2019-01-06] MEDS ORDERED: hydrALAZINE HCL 25 MG TABLET (FP) PO ONE (19:45)
[2019-01-06] MEDS ORDERED: cloNIDine-TTS 0.1 MG/24 HRS PATCH.TDWK TD SCH (22:00)
[2019-01-06] MEDS ORDERED: ONDANSETRON 4 MG/2 ML VIAL IVPUSH ONE (22:06)
[2019-01-06] MEDS: GABAPENTIN 300 MG CAPSULE (FP) PO SCH (22:22)
[2019-01-06] MEDS: ZOLPIDEM TARTRATE 5 MG TABLET PO PRN (22:22)
[2019-01-07] MEDS: hydrALAZINE HCL 25 MG TABLET (FP) PO SCH ×3 (05:37→22:34)
[2019-01-07] MEDS: hydrOXYzine HCL 25 MG TABLET (FP) PO SCH ×3 (05:38→22:35)
[2019-01-07] MEDS: HEPARIN NA (PORCINE) 5,000 UNITS/ML 1ML VIAL SQ SCH ×2 (10:27→22:15)
[2019-01-07] MEDS: MAGNESIUM OXIDE 400 MG TABLET (FP) PO SCH ×2 (10:27→22:34)
[2019-01-07] MEDS: diazePAM 5 MG TABLET PO SCH ×2 (10:27→22:34)
--- NOTE | 2019-01-07 11:05 | PN ---
Progress Note (short form) - Note Progress Note: DISCUSSED WITH ENDOCRINE WILL ORDER MRI BRAIN WITH AND WITHOUT CONTRAST PREMEDICATE WITH SOLUMEDROL AND BENADRYL DC PLANNING TOMORROW COLLECT 24 HOUR URINE TESTING
[2019-01-07] MEDS: methylPREDNISolone NA SUCC 40 MG/1 ML VIAL IVPUSH SCH ×2 (11:44→22:33)
--- NOTE | 2019-01-07 15:01 | CONSULT ---
Consult Consult Specialty:: Hematology Referred by:: Medicine Reason for Consultation:: Anemia - History of Present Illness Chief Complaint: Drop in Hb History of Present Illness: Patient recently admitted with uncontrolled HTN, and noted to have drop in Hb from day of admission (11.8) to following day (10.5). Unable to obtain further history from patient - incoherent at time of interview - apparently medication-related. - History Source History Provided By: Medical Record Limitations to Obtaining History: Other - Past Medical History Cardio/Vascular: Yes: HTN Gastrointestinal: Yes: Inflamatory Bowel Disease, Irritable Bowel Disease Renal/: Yes: Hematuria - Alcohol/Substance Use Hx Alcohol Use: No - Smoking History Smoking history: Never smoked Have you smoked in the past 12 months: No Home Medications - Allergies Allergies/Adverse Reactions: Allergies Allergy/AdvReac Type Severity Reaction Status Date / Time Iodinated Contrast- Oral and Allergy Verified 01/04/19 17:27 IV Dye metoclopramide HCl AdvReac Verified 01/04/19 17:26 [From Reglan] - Home Medications Home Medications: Ambulatory Orders Cefuroxime Axetil [Cefuroxime] 250 mg PO BID 01/04/19 Clonidine Patch [Catapres Tts Patch -] 0.1 mg TD WEEKLY 01/04/19 Gabapentin 300 mg PO HS 01/04/19 Zolpidem Tartrate 10 mg PO HS 01/04/19 Diazepam [Valium] 5 mg PO DAILY #5 tablet MDD 1 01/06/19 Diazepam [Valium] 5 mg PO DAILY PRN #5 tablet MDD 1 01/06/19 Magnesium Oxide [Mag-Ox -] 400 mg PO BID #60 tablet 01/06/19 Magnesium Oxide [Magnesium] 400 mg PO BID #60 capsule 01/06/19 Physical Exam Vital Signs: Vital Signs Temperature 98.2 F 01/07/19 07:00 Pulse Rate 76 01/07/19 07:00 Respiratory Rate 18 01/07/19 02:00 Blood Pressure 126/93 01/07/19 07:00 O2 Sat by Pulse Oximetry (%) 100 01/06/19 21:30 Constitutional: Yes: Well Nourished, No Distress Eyes: Yes: Conjunctiva Clear HENT: Yes: Normocephalic Neck: Yes: Trachea Midline. No: Lymphadenopathy Cardiovascular: Yes: S1, S2 Respiratory: Yes: Regular, CTA Bilaterally Gastrointestinal: Yes: Soft. No: Distention, Hepatomegaly, Palpable Mass, Splenomegaly Edema: No Integumentary: Yes: WNL Neurological: Yes: Confusion, Lethargy ...Motor Strength: WNL Psychiatric: Yes: Other Labs: CBC, BMP 01/05/19 08:30 01/06/19 06:20 Assessment/Plan Mild normocytic anemia, of unclear significance. Ferritin borderline, suggesting possible iron deficiency, although would have expected a lower MCV. Serum iron/TF pending. If serum iron is low and TF elevated then would start oral iron supplementation. Would recommend workup, with appropriate history-taking (not achieved this admission) as an outpatient.
[2019-01-07] MEDS ORDERED: PT OWN MED DRAWER 7, Y5N ONE (22:29)
[2019-01-07] MEDS: GABAPENTIN 300 MG CAPSULE (FP) PO SCH (22:34)
--- NOTE | 2019-01-07 22:43 | PN ---
Progress Note, Physician Chief Complaint: still having episodic diaphoretic and weakness - Current Medication List Current Medications: Active Medications Clonidine HCl (Catapres Tts Patch -) 0.1 mg TD Q7D@1000 [facility] Last Admin: 01/06/19 22:30 Dose: 0.1 mg Diazepam (Valium -) 5 mg PO BID [facility] Last Admin: 01/07/19 22:34 Dose: 5 mg Diphenhydramine HCl (Benadryl Injection -) 12.5 mg IVPUSH Q4H PRN PRN Reason: FOR ITCHING Last Admin: 01/07/19 22:34 Dose: 12.5 mg Gabapentin (Neurontin -) 300 mg PO [facility] Last Admin: 01/07/19 22:34 Dose: 300 mg Heparin Sodium (Porcine) (Heparin -) 5,000 unit SQ BID [facility] Last Admin: 01/07/19 22:15 Dose: Not Given Hydralazine HCl (Apresoline -) 25 mg PO TID [facility] Last Admin: 01/07/19 22:34 Dose: 25 mg Hydroxyzine HCl (Atarax -) 25 mg PO TID [facility] Last Admin: 01/07/19 22:35 Dose: 25 mg Magnesium Oxide (Mag-Ox -) 400 mg PO BID [facility] Last Admin: 01/07/19 22:34 Dose: 400 mg Methylprednisolone Sodium Succinate (Solu-Medrol -) 80 mg IVPUSH BID [facility] Last Admin: 01/07/19 22:33 Dose: 80 mg Propranolol HCl (Inderal -) 10 mg PO TID [facility] Last Admin: 01/07/19 22:35 Dose: 10 mg - Objective Vital Signs: Vital Signs Temperature 98.7 F 01/07/19 18:30 Pulse Rate 102 H 01/07/19 22:11 Respiratory Rate 20 01/07/19 22:11 Blood Pressure 165/111 H 01/07/19 22:11 O2 Sat by Pulse Oximetry (%) 100 01/07/19 11:00 Constitutional: Yes: Anxious Eyes: Yes: EOM Intact HENT: Yes: Normocephalic Neck: Yes: Trachea Midline Cardiovascular: Yes: Regular Rate and Rhythm Respiratory: Yes: CTA Bilaterally Gastrointestinal: Yes: Normal Bowel Sounds ...Rectal Exam: Yes: Deferred Genitourinary: Yes: WNL Musculoskeletal: Yes: WNL Extremities: Yes: WNL Edema: No Neurological: Yes: Alert, Oriented Psychiatric: Yes: Alert, Oriented Labs: CBC, BMP 01/05/19 08:30 01/06/19 06:20 INR, PTT INR 0.95 (0.83-1.09) 01/04/19 18:38 Problem List - Problems (1) Hypertension Code(s): I10 - ESSENTIAL (PRIMARY) HYPERTENSION Qualifiers: Hypertension 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 (2) Nausea and vomiting Code(s): R11.2 - NAUSEA WITH VOMITING, UNSPECIFIED Assessment/Plan Current Active Problems Anxiety (Acute) Labile hypertension (Acute) Nausea and vomiting (Acute) Orthostatic hypotension (Acute) Laboratory Tests 01/05/19 01/05/19 01/06/19 08:30 08:30 06:20 WBC 5.7 RBC 3.50 L Hgb 10.5 L Hct 30.2 L MCV 86.4 MCHC 34.8 Plt Count 322 Sodium 136 Potassium 4.0 Chloride 103 Carbon Dioxide 24 Anion Gap 9 BUN 14 Creatinine 1.0 Creat Clearance w eGFR > 60 Random Glucose 123 H Cortisol AM Sample 1.7 plan: titrate bp meds as labile bp significant mri brain pituitary lesion suspect 24 hr urine v[facility]
[2019-01-07] MEDS ORDERED: ZOLPIDEM TARTRATE 5 MG TABLET PO ONE (22:54)
[2019-01-08] MEDS ORDERED: CYCLOBENZAPRINE HCL 10 MG TABLET (FP) PO ONE (00:34)
[2019-01-08] MEDS ORDERED: ONDANSETRON 4 MG/2 ML VIAL IVPUSH ONE (02:02)
[2019-01-08] MEDS: hydrOXYzine HCL 25 MG TABLET (FP) PO SCH ×3 (05:27→21:05)
[2019-01-08] MEDS: hydrALAZINE HCL 25 MG TABLET (FP) PO SCH ×3 (05:27→21:03)
--- NOTE | 2019-01-08 10:32 | PN ---
Progress Note (short form) - Note Progress Note: AROUSED FROM SLEEP MRI BRAIN REVIEWED NORMAL RESULTS LABS REVIEWED CAN F/U OUTPATIENT WITH HEMATOLOGY AND NEUROLOGY SEE DR TORRES IN 2-3 DAYS
[2019-01-08] MEDS: methylPREDNISolone NA SUCC 40 MG/1 ML VIAL IVPUSH SCH (10:36)
[2019-01-08] MEDS: MAGNESIUM OXIDE 400 MG TABLET (FP) PO SCH (10:36)
[2019-01-08] MEDS: HEPARIN NA (PORCINE) 5,000 UNITS/ML 1ML VIAL SQ SCH ×2 (10:41→21:03)
[2019-01-08] MEDS ORDERED: SODIUM CHLORIDE 250 ML IV STA (10:41)
[2019-01-08] MEDS ORDERED: SODIUM CHLORIDE 1,000 ML IV SCH (10:45)
[2019-01-08] MEDS: diazePAM 5 MG TABLET PO SCH (10:50)
--- NOTE | 2019-01-08 10:54 | PN ---
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 I HAVE ASKED FOR PSYCHIATRY AND NEUROLOGY EVAL. MRI BRAIN NORMAL NO LESIONS OR STROKES.
[2019-01-08 11:08] LABS: BASO % 0.1 % (0-2.0); HEMATOCRIT 33.6 % (32.4-45.2); LYMPH % 7.9 % (8-40); MCH 28.6 pg (25.7-33.7); MCHC 32.9 g/dl (32.0-36.0); MEAN CELL VOLUME 86.9 fl (80-96); MEAN PLT VOLUME 7.2 fl (7.5-11.1); MONO % 1.6 % (3.8-10.2); NEUT % 90.4 % (42.8-82.8); PLATELET COUNT 432 K/MM3 (134-434); RBC 3.87 M/mm3 (3.60-5.2); WHITE BLOOD COUNT 14.2 K/mm3 (4.0-10.0)
[2019-01-08 12:09] LABS: HEMATOCRIT 31.2 % (32.4-45.2); HEMOGLOBIN 10.5 GM/dL (10.7-15.3); LYMPH % 8.4 % (8-40); MCH 28.9 pg (25.7-33.7); MCHC 33.6 g/dl (32.0-36.0); MEAN CELL VOLUME 86.1 fl (80-96); MEAN PLT VOLUME 6.8 fl (7.5-11.1); MONO % 4.6 % (3.8-10.2); PLATELET COUNT 404 K/MM3 (134-434); RBC 3.62 M/mm3 (3.60-5.2)
[2019-01-08 12:58] LABS: ALBUMIN 3.3 g/dl (3.4-5.0); ALK PHOS 75 U/L (45-117); ANION GAP 8 MMOL/L (8-16); BILIRUBIN,TOTAL 0.2 mg/dL (0.2-1); BLOOD UREA NITROGEN 20 mg/dL (7-18); CALCIUM 8.2 mg/dL (8.5-10.1); CHLORIDE 105 mmol/L (98-107); CO2 22 mmol/L (21-32); CREATININE 1.3 mg/dL (0.55-1.3); GLUCOSE,RANDOM 130 mg/dL (74-106); POTASSIUM 5.2 mmol/L (3.5-5.1); SGOT/AST 16 U/L (15-37); SGPT/ALT 37 U/L (13-61); SODIUM 136 mmol/L (136-145); TOT PROT 6.7 g/dl (6.4-8.2)
--- NOTE | 2019-01-08 13:51 | PN ---
Mental Health Exam - Mental Status Exam Alert and Oriented to: Time, Place, Person Cognitive Function: Grossly Intact Patient Appearance: Well Groomed Mood: Anxious, Happy Affect: Appropriate, Mood Congruent Patient Behavior: Dependent, Appropriate, Cooperative Speech Pattern: Clear, Perseverating Voice Loudness: Normal Thought Process: Intact Thought Disorder: Not Present Hallucinations: None, Denies Suicidal Ideation: None, Denies, No Plan Homicidal Ideation: None Insight/Judgement: Fair Sleep: Poorly (NOT SLEPT IN 3 NIGHTS, I HAD THIS PROBLEM FROM CHILDHOOD") Appetite: Fair Muscle strength/Tone: Normal Gait/Station: Normal
--- NOTE | 2019-01-08 14:05 | PN ---
Progress Note (short form) - Note Progress Note: 43YO GUS OROPEZA h/o labile HTN, chest pain p/w lightheadedness, nausea, chest pain. Referred by PCP for HTN workup, also had chest pain which is exertional, not reproducible. Mayra Crowell noted that she is babbling incohernetly after awakening from a deep sleep. cLIENT WAS ADMITTED ON 09/07 AND 2 WEEKS AGO WITh sever Hypertension. Client is talkative and co-operative, denies Si Hi ah or VH. \client gives history of taking ambien 10 mg for many years, after complete sleep studies client is on prn valium, takes vicodan at home for cervical back pain. Client was also on Cymbalta 30 mg but has stopped it recently. She is afraid of running out of this med and having withrawl. It worked when she has it. works as a college counsellor, finds job stressful, lives with roommates. No psychiatry history, but many of her htn meds are causing re bound anxiety. 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 restart cymbalta at 30 mg. Problem List - Problems (1) Anxiety disorder due to general medical condition Code(s): F06.4 - ANXIETY DISORDER DUE TO KNOWN PHYSIOLOGICAL CONDITION (2) Anxiety Code(s): F41.9 - ANXIETY DISORDER, UNSPECIFIED
--- NOTE | 2019-01-08 15:10 | PN ---
Progress Note (short form) - Note Progress Note: this am had episode feeling "loopy" not sleeping well | Abnormal Lab Results 01/08/19 01/08/19 01/08/19 07:30 07:45 11:50 WBC 14.2 H 17.0 H Hgb 10.5 L Hct 31.2 L MPV 7.2 L 6.8 L Absolute Neuts (auto) 12.9 H 14.8 H Neutrophils % 90.4 H 87.0 H Lymphocytes % 7.9 L D Monocytes % 1.6 L D Retic Count 1.98 H Potassium BUN Random Glucose Calcium Albumin 01/08/19 11:50 WBC Hgb Hct MPV Absolute Neuts (auto) Neutrophils % Lymphocytes % Monocytes % Retic Count Potassium 5.2 H BUN 20 H Random Glucose 130 H Calcium 8.2 L Albumin 3.3 L labile hypertension normal cosyntropin stim testing no endocrine source for labile hypertension anxiety possible source bp elevation plan:dc iv solumedrol Problem List - Problems (1) Hypertension Code(s): I10 - ESSENTIAL (PRIMARY) HYPERTENSION Qualifiers: Hypertension 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 (2) Nausea and vomiting Code(s): R11.2 - NAUSEA WITH VOMITING, UNSPECIFIED
[2019-01-08] MEDS ORDERED: diphenhydrAMINE HCL 25 MG CAPSULE (FP) PO PRN (17:56)
[2019-01-08 20:58] LABS: URINE TOTAL VOLUME 1150 mL
[2019-01-08 20:59] LABS: URINE 24 HOUR SODIUM 147 meq/24HR (40-220)
[2019-01-08] MEDS: GABAPENTIN 300 MG CAPSULE (FP) PO SCH (21:03)
--- NOTE | 2019-01-09 00:31 | HOSP ---
Subjective - Review of Symptoms Events since last encounter: Hospitalist Encounter Notified by the RN that the patient reports "sharp" chest pain. Subjective: Arrived to bedside, patient is awake, alert and oriented. Patient reports L- sided CP non-radiating, denies SOB denies palpitations. Plan: Stat EKG Stat Troponin Toradol IV x1 Cardiovascular: Yes: Chest Pain Physical Examination Vital Signs: Vital Signs Temperature 98.0 F 01/08/19 18:00 Pulse Rate 93 H 01/08/19 23:00 Respiratory Rate 18 01/08/19 23:00 Blood Pressure 143/98 01/08/19 23:00 O2 Sat by Pulse Oximetry (%) 100 01/08/19 18:00 Constitutional: Yes: Anxious Eyes: Yes: WNL, Conjunctiva Clear, EOM Intact, PERRL HENT: Yes: WNL, Atraumatic, Normocephalic Neck: Yes: WNL, Supple, Trachea Midline Cardiovascular: Yes: WNL, Regular Rate and Rhythm, S1, S2, Other (chest pain is reproducible to LCW on palpation) Respiratory: Yes: WNL, Regular, CTA Bilaterally Gastrointestinal: Yes: WNL, Normal Bowel Sounds, Soft Edema: No Peripheral Pulses WNL: Yes Neurological: Yes: WNL, Alert, Oriented, Cran Nerves II-XII Intact ...Motor Strength: WNL Psychiatric: Yes: WNL, Alert, Oriented Labs: CBC, BMP 01/08/19 11:50 01/08/19 11:50 Hospitalist Encounter Assessment: This is a 43 y/o woman admitted for Labile HTN. Outcome: EKG- NSR with nonspecific T wave abnormality, prolonged QT Troponin- neg Per RN, patient's CP resolved Addendum: 06:40-Was notified by RN that the patient is reporting increased redness and pruritus to right arm. Reassessed patient, noted erythema approximately dime size to medial antecubital fossa with minimal streaking up to the right humerus. Patient also reports pruritus to her back, mild erythema noted to mid upper back without urticaria. Topical hydrocortisone ordered
[2019-01-09] MEDS ORDERED: KETOROLAC TROMETHAMINE 30 MG/1 ML VIAL IVPUSH ONE (01:33)
[2019-01-09 06:08] LABS: SERUM IRON SATURATION 12 % (15-55); TOTAL IRON BINDING CAPACITY 353 ug/dL (250-450); UIBC 311 ug/dL (131-425)
[2019-01-09] MEDS ORDERED: CYCLOBENZAPRINE HCL 10 MG TABLET (FP) PO ONE (06:26)
[2019-01-09] MEDS ORDERED: HYDROCORTISONE 0.5% TOPICAL CREAM 30 GM TUBE TP ONE (06:35)
[2019-01-09] MEDS: hydrOXYzine HCL 25 MG TABLET (FP) PO SCH ×3 (06:40→21:33)
[2019-01-09] MEDS: hydrALAZINE HCL 25 MG TABLET (FP) PO SCH ×3 (06:41→21:33)
[2019-01-09] MEDS ORDERED: PT OWN MED DRAWER 7, Y5N ONE ×3 (08:18→21:06)
--- NOTE | 2019-01-09 08:54 | CON.NEURO ---
Consult - History of Present Illness History of Present Illness: 43 year old female, with a significant past medical history of labile hypertension,nausea vomiting,hypokalemia,chest pain,prior workup, gi and cardiac negative,has been on several antihypertensive meds which failed to control bp. she notes recent episode left her feeling light headed and nauseas.she denies fever, cough diarhea or rash. Labile hypertension continues MRI (-) ? prolonged QT does admit may have alopecia, numbness of her exe, and GI cramping - Past Medical History Cardio/Vascular: Yes: HTN Gastrointestinal: Yes: Inflamatory Bowel Disease, Irritable Bowel Disease Renal/: Yes: Hematuria - Alcohol/Substance Use Hx Alcohol Use: No - Smoking History Smoking history: Never smoked Have you smoked in the past 12 months: No Home Medications - Allergies Allergies/Adverse Reactions: Allergies Allergy/AdvReac Type Severity Reaction Status Date / Time Iodinated Contrast- Oral and Allergy Verified 01/04/19 17:27 IV Dye metoclopramide HCl AdvReac Verified 01/04/19 17:26 [From Reglan] - Home Medications Home Medications: Ambulatory Orders Cefuroxime Axetil [Cefuroxime] 250 mg PO BID 01/04/19 Clonidine Patch [Catapres Tts Patch -] 0.1 mg TD WEEKLY 01/04/19 Gabapentin 300 mg PO HS 01/04/19 Zolpidem Tartrate 10 mg PO HS 01/04/19 Diazepam [Valium] 5 mg PO DAILY #5 tablet MDD 1 01/06/19 Diazepam [Valium] 5 mg PO DAILY PRN #5 tablet MDD 1 01/06/19 Magnesium Oxide [Mag-Ox -] 400 mg PO BID #60 tablet 01/06/19 Magnesium Oxide [Magnesium] 400 mg PO BID #60 capsule 01/06/19 Physical Exam-Neuro Vital Signs: Vital Signs Temperature 98.6 F 01/09/19 02:04 Pulse Rate 77 01/09/19 06:00 Respiratory Rate 18 01/09/19 06:00 Blood Pressure 159/93 01/09/19 06:00 O2 Sat by Pulse Oximetry (%) 100 01/09/19 02:00 Labs: CBC, BMP 01/08/19 11:50 INR, PTT INR 0.95 (0.83-1.09) 01/04/19 18:38 Assessment/Plan 43 year old female, with a significant past medical history of labile hypertension,nausea vomiting,hypokalemia,chest pain,prior workup, gi and cardiac negative,has been on several antihypertensive meds which failed to control bp. she notes recent episode left her feeling light headed and nauseas.she denies fever, cough diarhea or rash. Labile hypertension continues MRI (-) ? prolonged QT does admit may have alopecia, numbness of her exe, and GI cramping FU : labile hypertension, r/o cardiac vs endocrine causes CARD FU - ? electrophysiology eval if (-), will consider possible autonomic neuropathy will see if panel available in hospital ( acycetcholine-ganglionic AB) / tehre is an CARLOS DX panel for this as well can get small fiber neuropathy skin biopsy as outpt also reasonable for basic rheum screen if not done already, CHRISTAL, ESR, CICI, ANT DS DNA, SSA/SSB AB DR BAUTISTA
[2019-01-09 09:28] LABS: ANION GAP 10 MMOL/L (8-16); BLOOD UREA NITROGEN 28 mg/dL (7-18); CALCIUM 9.5 mg/dL (8.5-10.1); CHLORIDE 104 mmol/L (98-107); CO2 22 mmol/L (21-32); CREATININE 1.4 mg/dL (0.55-1.3); GLUCOSE,RANDOM 94 mg/dL (74-106); POTASSIUM 4.2 mmol/L (3.5-5.1); SODIUM 137 mmol/L (136-145)
[2019-01-09] MEDS: HEPARIN NA (PORCINE) 5,000 UNITS/ML 1ML VIAL SQ SCH ×2 (09:45→21:33)
--- NOTE | 2019-01-09 13:33 | CON.PSL ---
Psychology Consult Consult Specialty:: Clinical Psychology Referred by:: Dr. Walker History Provided By: Patient Limitations to Obtaining History: No Limitations Current Medications: Active Medications Clonidine HCl (Catapres Tts Patch -) 0.1 mg TD Q7D@1000 [facility] Last Admin: 01/06/19 22:30 Dose: 0.1 mg Diphenhydramine HCl (Benadryl -) 50 mg PO HS PRN PRN Reason: INSOMNIA Last Admin: 01/08/19 21:34 Dose: 50 mg Gabapentin (Neurontin -) 300 mg PO HS [facility] Last Admin: 01/08/19 21:03 Dose: 300 mg Heparin Sodium (Porcine) (Heparin -) 5,000 unit SQ BID [facility] Last Admin: 01/09/19 09:45 Dose: Not Given Hydralazine HCl (Apresoline -) 25 mg PO TID [facility] Last Admin: 01/09/19 06:41 Dose: 25 mg Hydroxyzine HCl (Atarax -) 25 mg PO TID [facility] Last Admin: 01/09/19 06:40 Dose: 25 mg Propranolol HCl (Inderal -) 10 mg PO TID [facility] Last Admin: 01/09/19 06:40 Dose: 10 mg Allergies: Allergies Allergy/AdvReac Type Severity Reaction Status Date / Time Iodinated Contrast- Oral and Allergy Verified 01/04/19 17:27 IV Dye metoclopramide HCl AdvReac Verified 01/04/19 17:26 [From Reglan] Does patient have pain?: Yes Pain Location Body Site: Neck Pain Description: Non-Descriptive Pain Intensity: 10 Hx Alcohol Use: Yes (Once in a while she will have one glass with dinner.) Hx Substance Use: No Hx Substance Use Treatment: No - Family History Family History: Unremarkable Current Medical Exam-Psy Orientation: Time, Person, Place Immediate Term Memory: 01/08 Expressive: Coherent Receptive: Age Appropriate Comprehension of Spoken Words Hallucinations: Absent Thought Process: Intact Depression: Moderate (Her depressed feeling occur on occasion and are related to her serious medical problems.) Hopelessness: Yes Loss of Interest: No Anxiety Level: Severe Danger to Self and Others: No Sleep: Poorly, Difficulty falling asleep Appetite: Poor (She has no appetite but forces herself to eat.) Serial Sevens Intact: Yes Repeats 3 words told earlier: 01/08 Support System: Friend Leisure activities: With friends Problem List - Problem (1) Depressive disorder due to another medical condition with depressive features Code(s): F06.31 - MOOD DISORDER DUE TO KNOWN PHYSIOL COND W DEPRESSV FEATURES (2) Insomnia disorder Code(s): G47.00 - INSOMNIA, UNSPECIFIED Assessment/Plan The patient is suffering from a number of cardiac, GI and other symptoms of unknown etiology. She is very anxiety ridden and is experiencing serious insomnia and loss of appetite. Her mental status is uneventful with the exception of her severe anxiety and bouts of depression, both related to her medical symptoms. The recommended treatment plan is to provide self hypnotic treatment while the patient is on 4 [place] in order to monitor her blood pressure and HRV. She has a hx of vacillating blood pressure from severely hypertensive to hypotensive states. There is a concern that the treatment could lower her BP as it would induce significant relaxation for relief of her insomnia, anxiety and pain.
--- NOTE | 2019-01-09 13:46 | PN ---
Progress Note, Physician Chief Complaint: patient with elevated BP 155/115 she ia anxious has not slept over night only about 2 hrs with the benadryl dr Eason will work with tracie with relaxation exercises - Current Medication List Current Medications: Active Medications Clonidine HCl (Catapres Tts Patch -) 0.1 mg TD Q7D@1000 [facility] Last Admin: 01/06/19 22:30 Dose: 0.1 mg Diphenhydramine HCl (Benadryl -) 50 mg PO HS PRN PRN Reason: INSOMNIA Last Admin: 01/08/19 21:34 Dose: 50 mg Gabapentin (Neurontin -) 300 mg PO HS [facility] Last Admin: 01/08/19 21:03 Dose: 300 mg Heparin Sodium (Porcine) (Heparin -) 5,000 unit SQ BID [facility] Last Admin: 01/09/19 09:45 Dose: Not Given Hydralazine HCl (Apresoline -) 25 mg PO TID [facility] Last Admin: 01/09/19 06:41 Dose: 25 mg Hydroxyzine HCl (Atarax -) 25 mg PO TID [facility] Last Admin: 01/09/19 06:40 Dose: 25 mg Propranolol HCl (Inderal -) 10 mg PO TID [facility] Last Admin: 01/09/19 06:40 Dose: 10 mg - Objective Vital Signs: Vital Signs Temperature 97.7 F 01/09/19 10:00 Pulse Rate 76 01/09/19 10:00 Respiratory Rate 18 01/09/19 10:00 Blood Pressure 157/112 H 01/09/19 10:00 O2 Sat by Pulse Oximetry (%) 100 01/09/19 02:00 Constitutional: Yes: Anxious Cardiovascular: Yes: Regular Rate and Rhythm, S1, S2 Respiratory: Yes: CTA Bilaterally Gastrointestinal: Yes: Normal Bowel Sounds, Soft Neurological: Yes: Alert Labs: CBC, BMP 01/08/19 11:50 01/09/19 08:20 INR, PTT INR 0.95 (0.83-1.09) 01/04/19 18:38 Problem List - Problems (1) Hypertension Assessment/Plan: transfer to telemetry to monitor BP cardiology on board MRI of brain negative hydralazine tid- change to qid urine aldosterone,renin,prolactin 5 HIAA ordered clonidine patch weekly dr Eason to teach relaxation exercises low dose clonazepam for anxiety at night and help her sleep Code(s): I10 - ESSENTIAL (PRIMARY) HYPERTENSION Qualifiers: Hypertension 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
[2019-01-09 13:59] LABS: URINE TOTAL VOLUME 1000 mL
[2019-01-09] MEDS ORDERED: DULoxetine HCL 30 MG CAPSULE.DR (FP) PO SCH (14:00)
[2019-01-09 14:21] LABS: URINE PROTEIN 16 mg/dl (5.0-11.9)
--- NOTE | 2019-01-09 16:14 | EKG ---
Test Reason : Blood Pressure : / mmHG Vent. Rate : 069 BPM Atrial Rate : 069 BPM P-R Int : 132 ms QRS Dur : 082 ms QT Int : 434 ms P-R-T Axes : 040 006 002 degrees QTc Int : 465 ms NORMAL SINUS RHYTHM MINIMAL VOLTAGE CRITERIA FOR LVH, MAY BE NORMAL VARIANT NONSPECIFIC T WAVE ABNORMALITY PROLONGED QT ABNORMAL ECG WHEN COMPARED WITH ECG OF 04-JAN-2019 19:53, VENT. RATE HAS DECREASED BY 48 BPM T WAVE VARIATION Confirmed by JOSE CARLOS CONNOR MD ([id number]) on 01/09/2019 4:14:01 PM Referred By: Confirmed By:JOSE CARLOS CONNOR MD
--- NOTE | 2019-01-09 16:33 | PN ---
Progress Note (short form) - Note Progress Note: s: no cp sob palps dizzy. o: Vital Signs Period Temp Pulse Resp BP Sys/Ramos Pulse Ox Last 24 Hr 97.7 F-98.6 F 74-93 18-20 132-180/87-122 100-100 Constitutional: Yes: No Distress, Calm Eyes: Yes: Conjunctiva Clear Neck: Yes: Supple, Trachea Midline Respiratory: Yes: Regular, CTA Bilaterally Gastrointestinal: Yes: Normal Bowel Sounds, Soft Cardiovascular: Yes: Regular Rate and Rhythm JVD: No Heart Sounds: Yes: S1, S2 Musculoskeletal: No: Back Pain Extremities: No: Cold Edema: No Integumentary: No: Jaundice Neurological: Yes: Alert, Oriented Psychiatric: Yes: Alert, Oriented Current Medications Clonazepam (Klonopin -) 0.5 mg PO HS PRN PRN Reason: insomnia Clonidine HCl (Catapres Tts Patch -) 0.1 mg TD Q7D@1000 [facility] Last Admin: 01/06/19 22:30 Dose: 0.1 mg Gabapentin (Neurontin -) 300 mg PO HS [facility] Last Admin: 01/08/19 21:03 Dose: 300 mg Heparin Sodium (Porcine) (Heparin -) 5,000 unit SQ BID [facility] Last Admin: 01/09/19 09:45 Dose: Not Given Hydralazine HCl (Apresoline -) 25 mg PO TID [facility] Last Admin: 01/09/19 14:22 Dose: 25 mg Hydroxyzine HCl (Atarax -) 25 mg PO TID [facility] Last Admin: 01/09/19 14:26 Dose: 25 mg Propranolol HCl (Inderal -) 10 mg PO TID [facility] Last Admin: 01/09/19 14:26 Dose: 10 mg echo with definity 09/2017: EF 65-70%. nl diastolic fn/nl la size. nl rv. No rvsp. no coarct. nl ivc. echo 11/2016: tds. Nl Nl lv/rv/valves. Equalization of E and A. No coarct. 11/2017 ambulatory bp monitoring, results reviewed. see emr 11/2016 carotid u/s wnl. EKG: sinus tachycardia, no ischemic changes CXR:no acute process lower ext ultrasound: no DVT Assessment/Plan HTN - undergoing workup for secondary HTN - prior workup with Dr. Celis no coarctation, renal stenosis, AIDEN, labs unremarkable - hx LIZA on diuretic and ACEI, dizziness on coreg - on propranolol, hydralazine and clonidine patch but home bp log for past 2 weeks shows hypotension daily and here with low bp and +ortho vitals as well - hydralazine and inderal were dc'ed and restarted due to elevated BP episodes - discussed with patient today, she had not been taking hydralazine or propranolol consistently at home, sometimes was taking once a day and sometimes not at all - has been on clonidine since at least April 2018, propranolol since sometime last summer and hydralazine for the last couple of weeks - significant anxiety component - evaluated by psych as well, started on clonazepam and seen by psychologist Dr. Villatoro - reportedly had low HR in the 30s, although not charted - will dc propranolol - increase clonidine patch to 0.2 mg Qweek - continue hydralazine - testing for autonomic neuropathy per neuro - labs as outpatient - discussed with Dr. Bhandari sinus tachycardia - benign, noted at prior ER and office visits, event monitor 05/2018 showed sinus tachycardia associated with palpitations Chest pain - no signs acs - would defer further cardiac workup, prior testing unremarkable - lung nodule - noted on prior imaging, repeat ct chest here shows no nodules
--- NOTE | 2019-01-09 17:26 | PN ---
Progress Note (short form) - Note Progress Note: The patient was administered a hypnotic intervention encompassing diaphragmatic breathing along with cognitive behavior therapy. The former involved inhaling through both nostrils to a count of 4, holding her breath for a count of 7 and exhaling to a count of 8 through pursed lips. In addition, positive reframing suggestions under hypnotic state were made to work on changing her pessimistic mindset to a more constructive one. The outcome of the intervention was a reduction in anxiety from a 10 to a 7. Her cervical spine pain was very low as the patient explained that her emotional pain blunted the physical pain experience. Her HR remained stable ranging from 76-87. Pulse Oximetry ranged from 96-99 %. It would have been valuable to also have BP measures. Once she is on 4 S, vital signs could be monitored as her BP ranges from severe hypertension to hypotension, the latter caused her to fall at one time. Since her diagnosis of an anxiety disorder was already established in her record , it was not listed as it would have been a duplicate. She obviously is being treated for the anxiety disorder related to her medical conditions. A consultation with Tracee Springer RN, MS is recommended to continue with relaxation and other adjunctive palliative interventions. The patient will be followed while she remains in the hospital. Thank you for the consultation request. Problem List - Problems (1) Depressive disorder due to another medical condition with depressive features Code(s): F06.31 - MOOD DISORDER DUE TO KNOWN PHYSIOL COND W DEPRESSV FEATURES (2) Insomnia disorder Code(s): G47.00 - INSOMNIA, UNSPECIFIED
[2019-01-09] MEDS ORDERED: cloNIDine-TTS 0.2 MG/24 HOURS PATCH.TDWK TD SCH (17:31)
[2019-01-09] MEDS: GABAPENTIN 300 MG CAPSULE (FP) PO SCH (21:33)
[2019-01-09] MEDS: clonazePAM 0.5 MG TABLET PO PRN (21:35)
--- NOTE | 2019-01-09 21:51 | PN ---
Progress Note (short form) - Note Progress Note: PAtient seen and exained no specific c/o discusssed about iron deficiency/causes/ mild anemia faily h/o cancer on fathers side AFVSS Cor: RSR, No murmurs, No gallops Lungs: Clear to P&A Abd: Soft, Normal bowel sounds, No organomegaly Ext:No significant edema Labs/meds reviewed A/P 43 y/o patient with generalized anxiety and depressive disordr/ ? 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 in father, pituitary adenoma in brother, 2 paternal 1st cousins with breast cancer To follow up with genetics counsellor--contact nos. given
[2019-01-10] MEDS: hydrOXYzine HCL 25 MG TABLET (FP) PO SCH ×3 (06:47→21:42)
[2019-01-10] MEDS: hydrALAZINE HCL 25 MG TABLET (FP) PO SCH (06:47)
[2019-01-10] MEDS: HEPARIN NA (PORCINE) 5,000 UNITS/ML 1ML VIAL SQ SCH ×2 (09:49→21:24)
--- NOTE | 2019-01-10 09:57 | PN ---
Progress Note (short form) - Note Progress Note: The patient was seen today. She is very anxious and concerned about her anemia and postential causes of it. She expressed worry about having more procedures, some of which were described as being painful. be consultc We discussed her concerns applying cognitive reasoning strategies and also employed diaphragmatic breathing for short intervals PRN to reduce her anxiety. Observation of these effects on her HR were small but still an indication that with practice, she may be able to reduce HR and perhaps stabilize her BP with these interventions ion addition to standard medical care. HR decreSED FROM APPROXIMATELY 120 TO 116-117 BPM. The patient reported that she finally slept better last night due to the medications she received. Palliative Care will attending to this patient as well as Pastoral Care. She will be seen on a regular basis. Problem List - Problems (1) Depressive disorder due to another medical condition with depressive features Code(s): F06.31 - MOOD DISORDER DUE TO KNOWN PHYSIOL COND W DEPRESSV FEATURES (2) Insomnia disorder Code(s): G47.00 - INSOMNIA, UNSPECIFIED
--- NOTE | 2019-01-10 09:59 | PN ---
Progress Note (short form) - Note Progress Note: s: complains of anxiety. no chest pain, palps, dizziness, lightheadedness, dyspnea. o: Constitutional: Yes: No Distress, Calm Eyes: Yes: Conjunctiva Clear Neck: Yes: Supple, Trachea Midline Respiratory: Yes: Regular, CTA Bilaterally Gastrointestinal: Yes: Normal Bowel Sounds, Soft Cardiovascular: Yes: Regular Rate and Rhythm JVD: No Heart Sounds: Yes: S1, S2 Musculoskeletal: No: Back Pain Extremities: No: Cold Edema: No Integumentary: No: Jaundice Neurological: Yes: Alert, Oriented Psychiatric: Yes: Alert, Oriented Current Medications Clonazepam (Klonopin -) 0.5 mg PO HS PRN PRN Reason: insomnia Last Admin: 01/09/19 21:35 Dose: 0.5 mg Clonidine HCl (Catapres Tts Patch -) 0.2 mg TD Q7D@1000 [facility] Gabapentin (Neurontin -) 300 mg PO HS [facility] Last Admin: 01/09/19 21:33 Dose: 300 mg Heparin Sodium (Porcine) (Heparin -) 5,000 unit SQ BID [facility] Last Admin: 01/10/19 09:49 Dose: 5,000 unit Hydralazine HCl (Apresoline -) 25 mg PO TID [facility] Last Admin: 01/10/19 06:47 Dose: 25 mg Hydroxyzine HCl (Atarax -) 25 mg PO TID [facility] Last Admin: 01/10/19 06:47 Dose: 25 mg echo with definity 09/2017: EF 65-70%. nl diastolic fn/nl la size. nl rv. No rvsp. no coarct. nl ivc. echo 11/2016: tds. Nl Nl lv/rv/valves. Equalization of E and A. No coarct. 11/2016 carotid u/s wnl. EKG: sinus tachycardia, no ischemic changes CXR:no acute process lower ext ultrasound: no DVT tele: sinus tachycardia Assessment/Plan HTN - undergoing workup for secondary HTN - prior workup with Dr. Celis no coarctation on CT chest, renal stenosis, AIDEN, labs unremarkable - on propranolol, hydralazine and clonidine patch but home bp log for past 2 weeks shows hypotension daily and here with low bp and +ortho vitals as well - hydralazine and inderal were dc'ed and restarted due to elevated BP episodes - she had not been taking hydralazine or propranolol consistently at home, sometimes was taking once a day and sometimes not at all - discussed case with outpatient supervisor calibration Dr. Pardo at [facility]. Has had multiple admissions for cyclic vomiting, hypertension, and episodes of hypotension. She has had numerous workups for secondary hypertension including endocrine testing, vascular studies which have been normal - prior episodes of hypertension, tachycardia have been thought to be secondary to hyperadrenergic state as they usually surrounded anxiety, vomiting and nausea episodes - Dr. Pardo had encouraged psych evaluation and patient had refused in the past - during prior admissions she improved with valium and IV fluids (prior admissions generally she had poor PO intake, nausea and vomiting in addition to HTN) - had been on antidepressant which she stopped - testing for autonomic neuropathy per neuro - labs as outpatient planned - significant anxiety component - started on clonazepam and seen by psychologist Dr. Villatoro, encouraged participation with recommended techniques - reportedly had low HR in the 30s, although not charted - dc propranolol, was taking inconsistently at home - increase clonidine patch to 0.2 mg Qweek - amlodipine 5 mg daily started - monitor BP although in the past she has not had a response to this medication - stop hydralazine - patient says she has not been taking and will continue to have difficulty with TID medication sinus tachycardia, hx abnormal EKG - benign, noted at prior ER and office visits, event monitor 05/2018 showed sinus tachycardia associated with palpitations - QTc interval 469 and 479 here, borderline and stable compared to prior values. unlikely related to current presentation with labile HTN Chest pain - no signs acs - would defer further cardiac workup, prior testing unremarkable including echo and stress testing, atypical symptoms lung nodule - noted on prior imaging, repeat ct chest here shows no nodules
--- NOTE | 2019-01-10 10:10 | PN ---
Progress Note, Physician - Current Medication List Current Medications: Active Medications Amlodipine Besylate (Norvasc -) 5 mg PO DAILY [facility] Clonazepam (Klonopin -) 0.5 mg PO HS PRN PRN Reason: insomnia Last Admin: 01/09/19 21:35 Dose: 0.5 mg Clonidine HCl (Catapres Tts Patch -) 0.2 mg TD Q7D@1000 [facility] Gabapentin (Neurontin -) 300 mg PO HS [facility] Last Admin: 01/09/19 21:33 Dose: 300 mg Heparin Sodium (Porcine) (Heparin -) 5,000 unit SQ BID [facility] Last Admin: 01/10/19 09:49 Dose: 5,000 unit Hydralazine HCl (Apresoline -) 25 mg PO TID [facility] Last Admin: 01/10/19 06:47 Dose: 25 mg Hydroxyzine HCl (Atarax -) 25 mg PO TID [facility] Last Admin: 01/10/19 06:47 Dose: 25 mg - Objective Vital Signs: Vital Signs Temperature 98.8 F 01/10/19 06:00 Pulse Rate 104 H 01/10/19 06:00 Respiratory Rate 14 01/10/19 06:00 Blood Pressure 116/106 H 01/10/19 06:00 O2 Sat by Pulse Oximetry (%) 100 01/10/19 02:00 Labs: CBC, BMP 01/08/19 11:50 01/09/19 08:20 INR, PTT INR 0.95 (0.83-1.09) 01/04/19 18:38 Problem List - Problems (1) Labile hypertension Assessment/Plan: mnitor on telemetry cardiology on board MRI of brain negative hydralazine tid- change to qid urine aldosterone,renin,prolactin 5 HIAA ordered clonidine patch weekly add amlodipine renal consult dr Villatoro to teach relaxation exercises low dose clonazepam for anxiety at night and help her sleep Code(s): R09.89 - OTH SYMPTOMS AND SIGNS INVOLVING THE CIRC AND RESP SYSTEMS (2) Anxiety Code(s): F41.9 - ANXIETY DISORDER, UNSPECIFIED
[2019-01-10] MEDS: amLODIPine BESYLATE 5 MG TABLET (FP) PO SCH (10:26)
[2019-01-10] MEDS ORDERED: cloNIDine-TTS 0.2 MG/24 HOURS PATCH.TDWK TD SCH (11:15)
[2019-01-10] MEDS ORDERED: ONDANSETRON 4 MG/2 ML VIAL IVPB PRN (12:17)
[2019-01-10] MEDS ORDERED: PT OWN MED DRAWER 7, Y5N ONE ×2 (14:22→14:54)
--- NOTE | 2019-01-10 16:06 | PN ---
Progress Note (short form) - Note Progress Note: 43 year old female, with a significant past medical history of labile hypertension,nausea vomiting,hypokalemia,chest pain,prior workup, gi and cardiac negative,has been on several antihypertensive meds which failed to control bp. she notes recent episode left her feeling light headed and nauseas.she denies fever, cough diarhea or rash. Labile hypertension continues MRI (-) does admit may have alopecia, numbness of her exe, and GI cramping FU : still remains tachycardiac and hypertensive HR does drop with carotid massage autonoimc neuropathy labs to be sent as outpt - Past Medical History Cardio/Vascular: Yes: HTN Gastrointestinal: Yes: Inflamatory Bowel Disease, Irritable Bowel Disease Renal/: Yes: Hematuria - Alcohol/Substance Use Hx Alcohol Use: No - Smoking History Smoking history: Never smoked Have you smoked in the past 12 months: No Home Medications - Allergies Allergies/Adverse Reactions: Allergies Allergy/AdvReac Type Severity Reaction Status Date / Time Iodinated Contrast- Oral and Allergy Verified 01/04/19 17:27 IV Dye metoclopramide HCl AdvReac Verified 01/04/19 17:26 [From Reglan] - Home Medications Home Medications: Ambulatory Orders Cefuroxime Axetil [Cefuroxime] 250 mg PO BID 01/04/19 Clonidine Patch [Catapres Tts Patch -] 0.1 mg TD WEEKLY 01/04/19 Gabapentin 300 mg PO HS 01/04/19 Zolpidem Tartrate 10 mg PO HS 01/04/19 Diazepam [Valium] 5 mg PO DAILY #5 tablet MDD 1 01/06/19 Diazepam [Valium] 5 mg PO DAILY PRN #5 tablet MDD 1 01/06/19 Magnesium Oxide [Mag-Ox -] 400 mg PO BID #60 tablet 01/06/19 Magnesium Oxide [Magnesium] 400 mg PO BID #60 capsule 01/06/19 Physical Exam-Neuro Vital Signs: Vital Signs Temperature 99 F 01/10/19 10:00 Pulse Rate 106 H 01/10/19 10:00 Respiratory Rate 196 H 01/10/19 10:00 Blood Pressure 147/117 H 01/10/19 10:00 O2 Sat by Pulse Oximetry (%) 98 01/10/19 09:00 Labs: CBC, BMP 01/08/19 11:50 INR, PTT INR 0.95 (0.83-1.09) 01/04/19 18:38 Assessment/Plan 43 year old female, with a significant past medical history of labile hypertension,nausea vomiting,hypokalemia,chest pain,prior workup, gi and cardiac negative,has been on several antihypertensive meds which failed to control bp. she notes recent episode left her feeling light headed and nauseas.she denies fever, cough diarhea or rash. Labile hypertension continues MRI (-) ? prolonged QT does admit may have alopecia, numbness of her exe, and GI cramping FU : labile hypertension, r/o cardiac vs endocrine causes vs anxiety (though the latter is not likely the sole issue) even at rests she remains sig tachycardic CARD FU - ? electrophysiology eval if (-), autonomic neuropathy w( acycetcholine-ganglionic AB) / these is an CARLOS DX panel for this as well can get small fiber neuropathy skin biopsy as outpt CHRISTAL, ESR, CICI, ANT DS DNA, SSA/SSB AB -P DR BAUTISTA
--- NOTE | 2019-01-10 16:09 | CONSULT ---
Consult - text type - Consultation Consultation Note: Renal Consult for LIZA This is a 43 year old woman with hx of difficult to control hypertension, anxiety who presented with chest pain and hypertensive urgency and developed LIZA during her hospital stay. Pt denies any chest pain at the present time. Denies sob, abd pain, N/V/D. NO flank pain. Denies any dysuria, fever, chills. BP continues to flucate and is currently on oral medications. No contrast exposure, no nsaid use. Was noted to have non-obstructing stones on CT on admission. PMHx: as above Allergies: NKDA Family Hx: NC Social hx: No T/A/D ROS: as per HPI Vital Signs Temperature 99 F 01/10/19 10:00 Pulse Rate 106 H 01/10/19 10:00 Respiratory Rate 196 H 01/10/19 10:00 Blood Pressure 147/117 H 01/10/19 10:00 O2 Sat by Pulse Oximetry (%) 98 01/10/19 09:00 Intake & Output 01/07/19 01/08/19 01/09/19 01/10/19 23:59 23:59 23:59 23:59 Intake Total 900 500 600 300 Balance 900 500 600 300 NAD awake and alert neck supple no JVD RRR, No M/R CTA, no rales soft, + epigastric discomfort No LE edema CBC, BMP 01/08/19 11:50 01/09/19 08:20 Current Medications Amlodipine Besylate (Norvasc -) 5 mg PO DAILY [facility] Last Admin: 01/10/19 10:26 Dose: 5 mg Clonazepam (Klonopin -) 0.5 mg PO HS PRN PRN Reason: insomnia Last Admin: 01/09/19 21:35 Dose: 0.5 mg Clonidine HCl (Catapres Tts Patch -) 0.2 mg TD Q7D@1000 [facility] Last Admin: 01/10/19 11:22 Dose: 0.2 mg Gabapentin (Neurontin -) 300 mg PO HS [facility] Last Admin: 01/09/19 21:33 Dose: 300 mg Heparin Sodium (Porcine) (Heparin -) 5,000 unit SQ BID [facility] Last Admin: 01/10/19 09:49 Dose: 5,000 unit Hydroxyzine HCl (Atarax -) 25 mg PO TID [facility] Last Admin: 01/10/19 14:54 Dose: 25 mg Ondansetron HCl (Zofran Injection) 4 mg IVPB Q8H PRN PRN Reason: NAUSEA AND/OR VOMITING 43 year old woman with hx of difficult to control hypertension, anxiety who presented with chest pain and hypertensive urgency and developed LIZA during her hospital stay. #LIZA likely secondary to renal hypoprofusion in setting of hypertensive urgency/ emergency vs. obstruction from stones #Hypertensive urgency/emergency #Anxiety #Anemia Check Renal US to ensure there is not a new hydronephrosis. Will check urine for FeNa. Will defer IVF given uncontrolled hypertension. Continue oral antihypertensives as per cardiology. avoid CICI/ARB in setting of rising Cr. Avoid IV contrast and other nephrotoxins. Trend renal function and electrolytes. Arnie Lu DO
[2019-01-10] MEDS: GABAPENTIN 300 MG CAPSULE (FP) PO SCH (21:24)
[2019-01-10] MEDS: clonazePAM 0.5 MG TABLET PO PRN (21:24)
[2019-01-10] MEDS: CYCLOBENZAPRINE HCL 5 MG TABLET PO SCH (21:43)
[2019-01-10] MEDS: ACETAMINOPHEN 325 MG TABLET (FP) PO PRN (22:00)
--- NOTE | 2019-01-10 23:05 | PN ---
Progress Note, Physician Chief Complaint: has felt anxious and difficulty sleeping - Current Medication List Current Medications: Active Medications Acetaminophen (Tylenol -) 650 mg PO Q6H PRN PRN Reason: FEVER Last Admin: 01/10/19 22:00 Dose: 650 mg Amlodipine Besylate (Norvasc -) 5 mg PO DAILY [facility] Last Admin: 01/10/19 10:26 Dose: 5 mg Clonazepam (Klonopin -) 0.5 mg PO HS PRN PRN Reason: insomnia Last Admin: 01/10/19 21:24 Dose: 0.5 mg Clonidine HCl (Catapres Tts Patch -) 0.2 mg TD Q7D@1000 [facility] Last Admin: 01/10/19 11:22 Dose: 0.2 mg Cyclobenzaprine HCl (Cyclobenzaprine Hcl) 5 mg PO TID [facility] Last Admin: 01/10/19 21:43 Dose: 5 mg Gabapentin (Neurontin -) 300 mg PO HS [facility] Last Admin: 01/10/19 21:24 Dose: 300 mg Heparin Sodium (Porcine) (Heparin -) 5,000 unit SQ BID [facility] Last Admin: 01/10/19 21:24 Dose: Not Given Hydroxyzine HCl (Atarax -) 25 mg PO TID [facility] Last Admin: 01/10/19 21:42 Dose: 25 mg Ondansetron HCl (Zofran Injection) 4 mg IVPB Q8H PRN PRN Reason: NAUSEA AND/OR VOMITING Last Admin: 01/10/19 22:51 Dose: 4 mg - Objective Vital Signs: Vital Signs Temperature 97.9 F 01/10/19 21:07 Pulse Rate 116 H 01/10/19 21:07 Respiratory Rate 18 01/10/19 21:07 Blood Pressure 148/116 H 01/10/19 21:07 O2 Sat by Pulse Oximetry (%) 100 01/10/19 21:07 Constitutional: Yes: Anxious Eyes: Yes: EOM Intact HENT: Yes: Normocephalic Neck: Yes: Trachea Midline Cardiovascular: Yes: Regular Rate and Rhythm Respiratory: Yes: CTA Bilaterally Gastrointestinal: Yes: Normal Bowel Sounds ...Rectal Exam: Yes: Deferred Genitourinary: Yes: WNL Musculoskeletal: Yes: WNL Extremities: Yes: WNL Edema: No Neurological: Yes: Alert, Oriented Labs: CBC, BMP 01/08/19 11:50 01/09/19 08:20 INR, PTT INR 0.95 (0.83-1.09) 01/04/19 18:38 Problem List - Problems (1) Hypertension Code(s): I10 - ESSENTIAL (PRIMARY) HYPERTENSION Qualifiers: Hypertension 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 (2) Nausea and vomiting Code(s): R11.2 - NAUSEA WITH VOMITING, UNSPECIFIED Assessment/Plan Current Active Problems Anxiety (Acute) Anxiety disorder due to general medical condition (Acute) Depressive disorder due to another medical condition with depressive features ( Acute) Insomnia disorder (Acute) Labile hypertension (Acute) Nausea and vomiting (Acute) Orthostatic hypotension (Acute) Abnormal Lab Results 01/10/19 01/10/19 05:30 18:00 ESR 27 H Creatine Kinase 21 L Laboratory Results - last 24 hr 01/10/19 01/10/19 01/10/19 05:30 05:30 18:00 ESR 27 H LD Total 108 Creatine Kinase 21 L Troponin I < 0.02 plan; monitor bp with change in meds as current hr noted higher await vma level psych consult
[2019-01-11] MEDS: CYCLOBENZAPRINE HCL 5 MG TABLET PO SCH (05:45)
[2019-01-11] MEDS: hydrOXYzine HCL 25 MG TABLET (FP) PO SCH (05:45)
[2019-01-11 08:06] LABS: IGA IMMUNOGLOBULIN 207 mg/dL (87-352); IGG IMMUNOGLOBULIN 983 mg/dL (700-1600); IGM IMMUNOGLOBULIN 77 mg/dL (26-217)
[2019-01-11 08:17] LABS: BASO % 1.4 % (0-2.0); HEMATOCRIT 36.7 % (32.4-45.2); HEMOGLOBIN 12.4 GM/dL (10.7-15.3); LYMPH % 37.8 % (8-40); MCH 28.9 pg (25.7-33.7); MCHC 33.7 g/dl (32.0-36.0); MEAN CELL VOLUME 85.7 fl (80-96); MEAN PLT VOLUME 6.6 fl (7.5-11.1); MONO % 7.3 % (3.8-10.2); NEUT % 51.5 % (42.8-82.8); PLATELET COUNT 524 K/MM3 (134-434); RBC 4.28 M/mm3 (3.60-5.2); RDW 15.1 % (11.6-15.6)
--- NOTE | 2019-01-11 08:25 | DS ---
Physical Examination Vital Signs: Vital Signs Temperature 97.9 F 01/11/19 06:00 Pulse Rate 104 H 01/11/19 06:00 Respiratory Rate 20 01/11/19 06:00 Blood Pressure 134/89 01/11/19 06:00 O2 Sat by Pulse Oximetry (%) 100 01/10/19 21:07 Cardiovascular: Yes: Tachycardia, S1, S2 Respiratory: Yes: Regular, CTA Bilaterally Gastrointestinal: Yes: Normal Bowel Sounds, Soft Labs: CBC, BMP 01/11/19 07:55 Discharge Summary Reason For Visit: LABILE HYPERTENSION,TACHYCARDIA,CHEST PAIN Current Active Problems Anxiety (Acute) Anxiety disorder due to general medical condition (Acute) Depressive disorder due to another medical condition with depressive features ( Acute) Insomnia disorder (Acute) Labile hypertension (Acute) Nausea and vomiting (Acute) Orthostatic hypotension (Acute) Hospital Course: - Problems (1) Labile hypertension Assessment/Plan: mnitor on telemetry cardiology on board MRI of brain negative hydralazine tid- change to qid urine aldosterone,renin,prolactin 5 HIAA ordered clonidine patch weekly added amlodipine low dose b-blockers renal consult noted--renal us dr Villatoro to teach relaxation exercises low dose clonazepam for anxiety at night and help her sleep Code(s): R09.89 - OTH SYMPTOMS AND SIGNS INVOLVING THE CIRC AND RESP SYSTEMS (2) Anxiety psych consult Code(s): F41.9 - ANXIETY DISORDER, UNSPECIFIED 3) LIZA Assessment/Plan: Renal on board Monitor US Condition: Stable - Instructions Diet, Activity, Other Instructions: MRI brain with and without contrast outpatient Referrals: Zak Bhandari MD [Primary Care Provider] - 1 Week - Home Medications Comprehensive Discharge Medication List: Ambulatory Orders Gabapentin 300 mg PO HS 01/04/19 Diazepam [Valium] 5 mg PO DAILY #5 tablet MDD 1 01/06/19 Magnesium Oxide [Mag-Ox -] 400 mg PO BID #60 tablet 01/06/19 Acetaminophen [Tylenol .Regular Strength -] 650 mg PO Q6H PRN tablet 01/11/19 Amlodipine Besylate [Norvasc -] 5 mg PO DAILY #30 tablet 01/11/19 Clonidine Patch [Catapres Tts Patch -] 0.2 mg TD Q7D@1000 #4 patch.tdwk Cyclobenzaprine HCl 5 mg PO TID #30 tablet 01/11/19 Metoprolol Succinate [Toprol XL -] 12.5 mg PO DAILY #30 tab.sr.24h 01/11/19 clonazePAM [Klonopin -] 0.5 mg PO HS PRN #5 tablet MDD 1 01/11/19 hydrALAZINE HCL [Apresoline -] 25 mg PO TID #90 tablet 01/11/19
[2019-01-11 08:54] LABS: ALBUMIN 3.7 g/dl (3.4-5.0); ALK PHOS 89 U/L (45-117); ANION GAP 10 MMOL/L (8-16); BILIRUBIN,TOTAL 0.4 mg/dL (0.2-1); BLOOD UREA NITROGEN 24 mg/dL (7-18); CALCIUM 8.8 mg/dL (8.5-10.1); CHLORIDE 104 mmol/L (98-107); CO2 22 mmol/L (21-32); CREATININE 1.1 mg/dL (0.55-1.3); GLUCOSE,RANDOM 99 mg/dL (74-106); POTASSIUM 4.5 mmol/L (3.5-5.1); SGOT/AST 10 U/L (15-37); SGPT/ALT 29 U/L (13-61); SODIUM 136 mmol/L (136-145); TOT PROT 7.4 g/dl (6.4-8.2)
--- NOTE | 2019-01-11 09:56 | PN ---
Progress Note (short form) - Note Progress Note: The patient was experiencing cephalgia at level 8 and cervical pain at level 7. After administration of a hypnotic intervention, her cervical pain decreased to a 4-5 and her cephalgia decreased to a 7. Anxiety was denied today. The patient stated that she expects to be discharged today pending the outcome of her lab tests. She had mentioned that she experienced a symptom of what might be a cluster headache in addition to typical migraine last night. We discussed follow-up with a neurologist. Problem List - Problems (1) Depressive disorder due to another medical condition with depressive features Code(s): F06.31 - MOOD DISORDER DUE TO KNOWN PHYSIOL COND W DEPRESSV FEATURES (2) Insomnia disorder Code(s): G47.00 - INSOMNIA, UNSPECIFIED
[2019-01-11] MEDS: amLODIPine BESYLATE 5 MG TABLET (FP) PO SCH (10:00)
[2019-01-11] MEDS ORDERED: metoPROLOL SUCCINATE 25 MG TAB.SR.24H (FP) PO SCH (10:00)
[2019-01-11] MEDS: HEPARIN NA (PORCINE) 5,000 UNITS/ML 1ML VIAL SQ SCH (10:01)
[2019-01-11] MEDS: ACETAMINOPHEN 325 MG TABLET (FP) PO PRN (10:02)
--- NOTE | 2019-01-11 10:34 | PN ---
Physical Exam: SUBJECTIVE: Patient seen and examined; hemoglobin/hematocrit wnl; now with thrombocytosis; bp controlled OBJECTIVE: Vital Signs Period Temp Pulse Resp BP Sys/Ramos Pulse Ox Last 24 Hr 97.9 F-98.5 F 104-132 17-21 126-178/88-127 100-100 GENERAL: The patient is awake, alert, and fully oriented, in no acute distress. HEAD: Normal with no signs of trauma. LUNGS: Breath sounds equal, clear to auscultation bilaterally, no wheezes, no crackles, no accessory muscle use. HEART: tachycardic and rhythm, S1, S2 without murmur, rub or gallop. Breast/axilla; no masses/lumps or nipple discharge ABDOMEN: Soft, nontender, nondistended, normoactive bowel sounds, no guarding, no rebound, no hepatosplenomegaly, no masses. EXTREMITIES: 2+ pulses, warm, well-perfused, no edema. NEUROLOGICAL: Cranial nerves II through XII grossly intact. Normal speech, gait not observed. PSYCH: Normal mood, normal affect. SKIN: Warm, dry, normal turgor, no rashes or lesions noted Laboratory Results - last 24 hr 01/10/19 01/10/19 01/10/19 05:30 05:30 05:30 WBC RBC Hgb Hct MCV MCH MCHC RDW Plt Count MPV Absolute Neuts (auto) Neutrophils % Lymphocytes % Monocytes % Eosinophils % Basophils % Nucleated RBC % ESR 27 H Sodium Potassium Chloride Carbon Dioxide Anion Gap BUN Creatinine Creat Clearance w eGFR Random Glucose Calcium Total Bilirubin AST ALT Alkaline Phosphatase Creatine Kinase Troponin I Total Protein Albumin IgG 983 IgA 207 IgM 77 Rheumatoid Arth Biomark < 10.0 01/10/19 01/11/19 01/11/19 18:00 07:55 07:55 WBC 9.0 RBC 4.28 Hgb 12.4 Hct 36.7 D MCV 85.7 MCH 28.9 MCHC 33.7 RDW 15.1 Plt Count 524 H D MPV 6.6 L Absolute Neuts (auto) 4.6 Neutrophils % 51.5 D Lymphocytes % 37.8 D Monocytes % 7.3 Eosinophils % 2.0 D Basophils % 1.4 D Nucleated RBC % 0 ESR Sodium 136 Potassium 4.5 Chloride 104 Carbon Dioxide 22 Anion Gap 10 BUN 24 H Creatinine 1.1 Creat Clearance w eGFR 54.47 Random Glucose 99 Calcium 8.8 Total Bilirubin 0.4 AST 10 L ALT 29 Alkaline Phosphatase 89 Creatine Kinase 21 L 16 L Troponin I < 0.02 < 0.02 Total Protein 7.4 Albumin 3.7 IgG IgA IgM Rheumatoid Arth Biomark Active Medications Generic Name Dose Route Start Last Admin Trade Name Freq PRN Reason Stop Dose Admin Acetaminophen 650 mg 01/10/19 21:24 01/11/19 10:02 Tylenol - PO 650 mg Q6H PRN Administration FEVER Amlodipine Besylate 5 mg 01/10/19 10:15 01/11/19 10:00 Norvasc - PO 5 mg DAILY [facility] Administration Clonazepam 0.5 mg 01/09/19 13:57 01/10/19 21:24 Klonopin - PO 0.5 mg HS PRN Administration insomnia Clonidine HCl 0.2 mg 01/10/19 11:15 01/10/19 11:22 Catapres Tts Patch - TD 0.2 mg Q7D@1000 [facility] Administration Cyclobenzaprine HCl 5 mg 01/10/19 22:00 01/11/19 05:45 Cyclobenzaprine Hcl PO 5 mg TID [facility] Administration Gabapentin 300 mg 01/04/19 22:00 01/10/19 21:24 Neurontin - PO 300 mg HS [facility] Administration Heparin Sodium (Porcine) 5,000 unit 01/04/19 22:00 01/11/19 10:01 Heparin - SQ 5,000 unit BID [facility] Administration Hydroxyzine HCl 25 mg 01/06/19 14:00 01/11/19 05:45 Atarax - PO 25 mg TID [facility] Administration Metoprolol Succinate 12.5 mg 01/11/19 10:00 01/11/19 10:00 Toprol Xl - PO 12.5 mg DAILY [facility] Administration Ondansetron HCl 4 mg 01/10/19 12:17 01/10/19 22:51 Zofran Injection IVPB 4 mg Q8H PRN Administration NAUSEA AND/OR VOMITING ASSESSMENT/PLAN: This is a 43 year old female, with labile hypertension, presenting with mild normocytic iron deficiency anemia. Normocytic anemia Iron deficiency anemia labile hypertension hypertensive emergency/urgency anxiety depression -hemoglobin /hematocrit now wnl; -platelets rising since admission; now with thrombocytosis; plts >500; reactive thrombocytosis? due to inflammation? , iron def anemia? 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 - New Patient This patient is new to me today: No - Critical Care Critical Care patient: No
[2019-01-11 11:19] VITALS: BP 127/85; PULSE 113; TEMP 98.3
--- NOTE | 2019-01-11 11:43 | PN ---
Progress Note (short form) - Note Progress Note: 43 year old female, with a significant past medical history of labile hypertension,nausea vomiting,hypokalemia,chest pain,prior workup, gi and cardiac negative,has been on several antihypertensive meds which failed to control bp. she notes recent episode left her feeling light headed and nauseas.she denies fever, cough diarhea or rash. Labile hypertension continues MRI (-) does admit may have alopecia, numbness of her exe, and GI cramping FU : spoke to cardiology, will miantain amplodpine and clonidine, pt defers B angelina though will reassess as outpt - Past Medical History Cardio/Vascular: Yes: HTN Gastrointestinal: Yes: Inflamatory Bowel Disease, Irritable Bowel Disease Renal/: Yes: Hematuria - Alcohol/Substance Use Hx Alcohol Use: No - Smoking History Smoking history: Never smoked Have you smoked in the past 12 months: No Home Medications - Allergies Allergies/Adverse Reactions: Allergies Allergy/AdvReac Type Severity Reaction Status Date / Time Iodinated Contrast- Oral and Allergy Verified 01/04/19 17:27 IV Dye metoclopramide HCl AdvReac Verified 01/04/19 17:26 [From Reglan] - Home Medications Home Medications: Ambulatory Orders Cefuroxime Axetil [Cefuroxime] 250 mg PO BID 01/04/19 Clonidine Patch [Catapres Tts Patch -] 0.1 mg TD WEEKLY 01/04/19 Gabapentin 300 mg PO HS 01/04/19 Zolpidem Tartrate 10 mg PO HS 01/04/19 Diazepam [Valium] 5 mg PO DAILY #5 tablet MDD 1 01/06/19 Diazepam [Valium] 5 mg PO DAILY PRN #5 tablet MDD 1 01/06/19 Magnesium Oxide [Mag-Ox -] 400 mg PO BID #60 tablet 01/06/19 Magnesium Oxide [Magnesium] 400 mg PO BID #60 capsule 01/06/19 Physical Exam-Neuro Vital Signs: Vital Signs Temperature 98.3 F 01/11/19 10:00 Pulse Rate 113 H 01/11/19 10:00 Respiratory Rate 20 01/11/19 10:00 Blood Pressure 127/85 01/11/19 10:00 O2 Sat by Pulse Oximetry (%) 100 01/11/19 09:00 Labs: CBC, BMP 01/08/19 11:50 INR, PTT INR 0.95 (0.83-1.09) 01/04/19 18:38 Assessment/Plan 43 year old female, with a significant past medical history of labile hypertension,nausea vomiting,hypokalemia,chest pain,prior workup, gi and cardiac negative,has been on several antihypertensive meds which failed to control bp. she notes recent episode left her feeling light headed and nauseas.she denies fever, cough diarhea or rash. Labile hypertension continues MRI (-) ? prolonged QT does admit may have alopecia, numbness of her exe, and GI cramping FU : labile hypertension, r/o cardiac vs endocrine causes vs anxiety even at rests she remains sig tachycardic CARD FU - MEYERS (-), encdocrine MEYERS (-) will get autonomic neuropathy MEYERS outpt cleared for Dc from neurologic standpoint can FU outpt [phone] BAUTISTA
--- NOTE | 2019-01-11 11:47 | PN ---
Progress Note (short form) - Note Progress Note: s: no chest pain, palps, dizziness, lightheadedness, dyspnea. o: Constitutional: Yes: No Distress, Calm Eyes: Yes: Conjunctiva Clear Neck: Yes: Supple, Trachea Midline Respiratory: Yes: Regular, CTA Bilaterally Gastrointestinal: Yes: Normal Bowel Sounds, Soft Cardiovascular: Yes: Regular Rate and Rhythm JVD: No Heart Sounds: Yes: S1, S2 Musculoskeletal: No: Back Pain Extremities: No: Cold Edema: No Integumentary: No: Jaundice Neurological: Yes: Alert, Oriented Psychiatric: Yes: Alert, Oriented Current Medications Acetaminophen (Tylenol -) 650 mg PO Q6H PRN PRN Reason: FEVER Last Admin: 01/11/19 10:02 Dose: 650 mg Amlodipine Besylate (Norvasc -) 5 mg PO DAILY [facility] Last Admin: 01/11/19 10:00 Dose: 5 mg Clonazepam (Klonopin -) 0.5 mg PO HS PRN PRN Reason: insomnia Last Admin: 01/10/19 21:24 Dose: 0.5 mg Clonidine HCl (Catapres Tts Patch -) 0.2 mg TD Q7D@1000 [facility] Last Admin: 01/10/19 11:22 Dose: 0.2 mg Cyclobenzaprine HCl (Cyclobenzaprine Hcl) 5 mg PO TID [facility] Last Admin: 01/11/19 05:45 Dose: 5 mg Gabapentin (Neurontin -) 300 mg PO HS [facility] Last Admin: 01/10/19 21:24 Dose: 300 mg Heparin Sodium (Porcine) (Heparin -) 5,000 unit SQ BID [facility] Last Admin: 01/11/19 10:01 Dose: 5,000 unit Hydroxyzine HCl (Atarax -) 25 mg PO TID [facility] Last Admin: 01/11/19 05:45 Dose: 25 mg Metoprolol Succinate (Toprol Xl -) 12.5 mg PO DAILY [facility] Last Admin: 01/11/19 10:00 Dose: 12.5 mg Ondansetron HCl (Zofran Injection) 4 mg IVPB Q8H PRN PRN Reason: NAUSEA AND/OR VOMITING Last Admin: 01/10/19 22:51 Dose: 4 mg echo with definity 09/2017: EF 65-70%. nl diastolic fn/nl la size. nl rv. No rvsp. no coarct. nl ivc. echo 11/2016: tds. Nl Nl lv/rv/valves. Equalization of E and A. No coarct. 11/2016 carotid u/s wnl. EKG: sinus tachycardia, no ischemic changes CXR:no acute process lower ext ultrasound: no DVT tele: sinus tachycardia Assessment/Plan HTN - undergoing workup for secondary HTN - prior workup with Dr. Celis no coarctation on CT chest, renal stenosis, AIDEN, labs unremarkable - on propranolol, hydralazine and clonidine patch but home bp log for past 2 weeks shows hypotension daily and here with low bp and +ortho vitals as well - hydralazine and inderal were dc'ed and restarted due to elevated BP episodes - she had not been taking hydralazine or propranolol consistently at home, sometimes was taking once a day and sometimes not at all - discussed case with outpatient promotions director Dr. Pardo at [facility]. Has had multiple admissions for cyclic vomiting, hypertension, and episodes of hypotension. She has had numerous workups for secondary hypertension including endocrine testing, vascular studies which have been normal - prior episodes of hypertension, tachycardia have been thought to be secondary to hyperadrenergic state as they usually surrounded anxiety, vomiting and nausea episodes - Dr. Pardo had encouraged psych evaluation and patient had refused in the past - during prior admissions she improved with valium and IV fluids (prior admissions generally she had poor PO intake, nausea and vomiting in addition to HTN) - had been on antidepressant which she stopped - testing for autonomic neuropathy per neuro - labs as outpatient planned - significant anxiety component - started on clonazepam and seen by psychologist Dr. Villatoro, encouraged participation with recommended techniques - reportedly had low HR in the 30s, although not charted - dc propranolol, was taking inconsistently at home - increase clonidine patch to 0.2 mg Qweek - amlodipine 5 mg daily started - monitor BP although in the past she has not had a response to this medication - stop hydralazine - patient says she has not been taking and will continue to have difficulty with TID medication - BP stable today with clonidine patch 0.2 mg Qweek and amlodipine 5 mg daily, continue - stable for discharge from cardiac perspective, follow up with outpatient promotions director Dr. Pardo sinus tachycardia, hx abnormal EKG - benign, noted at prior ER and office visits, event monitor 05/2018 showed sinus tachycardia associated with palpitations - QTc interval 469 and 479 here, borderline and stable compared to prior values. unlikely related to current presentation with labile HTN Chest pain - no signs acs - would defer further cardiac workup, prior testing unremarkable including echo and stress testing, atypical symptoms lung nodule - noted on prior imaging, repeat ct chest here shows no nodules
--- NOTE | 2019-01-11 12:41 | EKG ---
Test Reason : Blood Pressure : / mmHG Vent. Rate : 109 BPM Atrial Rate : 109 BPM P-R Int : 124 ms QRS Dur : 078 ms QT Int : 362 ms P-R-T Axes : 037 000 006 degrees QTc Int : 487 ms SINUS TACHYCARDIA MINIMAL VOLTAGE CRITERIA FOR LVH, MAY BE NORMAL VARIANT NONSPECIFIC T WAVE ABNORMALITY ABNORMAL ECG WHEN COMPARED WITH ECG OF 09-JAN-2019 00:57, VENT. RATE HAS INCREASED BY 40 BPM Confirmed by JUVE MCINTOSH, ALVIN ([id number]) on 01/11/2019 12:40:58 PM Referred By: Confirmed By:ALVIN AN MD
--- NOTE | 2019-01-11 12:55 | DS ---
Physical Examination Vital Signs: Vital Signs Temperature 98.3 F 01/11/19 10:00 Pulse Rate 113 H 01/11/19 10:00 Respiratory Rate 20 01/11/19 10:00 Blood Pressure 127/85 01/11/19 10:00 O2 Sat by Pulse Oximetry (%) 100 01/11/19 09:00 Labs: CBC, BMP 01/11/19 07:55 01/11/19 07:55 Discharge Summary Reason For Visit: LABILE HYPERTENSION,TACHYCARDIA,CHEST PAIN Current Active Problems Anxiety (Acute) Anxiety disorder due to general medical condition (Acute) Depressive disorder due to another medical condition with depressive features ( Acute) Insomnia disorder (Acute) Labile hypertension (Acute) Nausea and vomiting (Acute) Orthostatic hypotension (Acute) Hospital Course: Continue wit current medications follow up in one week with dr giang Condition: Stable - Instructions Diet, Activity, Other Instructions: MRI brain with and without contrast outpatient Referrals: Zak Giang MD [Primary Care Provider] - 1 Week Disposition: HOME - Home Medications Comprehensive Discharge Medication List: Ambulatory Orders Gabapentin 300 mg PO HS 01/04/19 Diazepam [Valium] 5 mg PO DAILY #5 tablet MDD 1 01/06/19 Magnesium Oxide [Mag-Ox -] 400 mg PO BID #60 tablet 01/06/19 Acetaminophen [Tylenol .Regular Strength -] 650 mg PO Q6H PRN tablet 01/11/19 Amlodipine Besylate [Norvasc -] 5 mg PO DAILY #30 tablet 01/11/19 Clonidine Patch [Catapres Tts Patch -] 0.2 mg TD Q7D@1000 #4 patch.tdwk Cyclobenzaprine HCl 5 mg PO TID #30 tablet 01/11/19 Metoprolol Succinate [Toprol XL -] 12.5 mg PO DAILY #30 tab.sr.24h 01/11/19 clonazePAM [Klonopin -] 0.5 mg PO HS PRN #5 tablet MDD 1 01/11/19 hydrALAZINE HCL [Apresoline -] 25 mg PO TID #90 tablet 01/11/19
[2019-01-11 15:20] LABS: ALBUMIN % 24.8 % (.); ALPHA-1 FOR UPE 5.6 % (.); TOTAL PROTEIN, URINE 15.5 mg/dL (Not Estab.)
[2019-01-12 15:22] LABS: RENIN ACTIVITY(PRA) 0.564 ng/mL/hr (0.167-5.380)
[2019-01-12 15:22] LABS: HGB SOLUBILITY Negative (Negative); Hgb A 98.2 % (96.4-98.8); Hgb C 0 % (0.0); Hgb F 0 % (0.0-2.0); Hgb S 0 % (0.0)
== END 2019-01-11 13:50 | disposition home or self-care (01) | DRG 305 ==
LOC: JER 17:11 → JERBED 18:43 → J5S 01-05 05:17 → FM/S 01-09 21:55 → J5S 01-09 21:57 → J2W 01-09 22:16 → OBSVTOIN 01-10 08:00 → J5W 01-10 18:53 → J4W 01-10 18:57 → JERBED 01-10 22:50 → J4W 01-10 22:51
PROVIDERS: ADMIT Family Medicine; ATTEND Family Medicine
DX: I10 Essential (primary) hypertension (principal); N17.9 Acute kidney failure, unspecified; I15.2 Hypertension secondary to endocrine disorders; R07.89 Other chest pain; G47.00 Insomnia, unspecified; I95.1 Orthostatic hypotension; R91.1 Solitary pulmonary nodule; R00.0 Tachycardia, unspecified; K58.9 Irritable bowel syndrome, unspecified; R11.2 Nausea with vomiting, unspecified; F06.4 Anxiety disorder due to known physiological condition; I45.81 Long QT syndrome; L29.9 Pruritus, unspecified; I16.0 Hypertensive urgency; R51 Headache; F41.8 Other specified anxiety disorders; D50.9 Iron deficiency anemia, unspecified; E87.6 Hypokalemia
CPT/HCPCS: 36415; 70553-TC; 71046-TC-FY; 71250-TC; 74176-TC; 76775-TC; 80048; 80053; 81003; 81015; 82088; 82150; 82533; 82550; 82570; 82575; 82728; 82784; 83021; 83497; 83540; 83550; 83615; 83690; 83735; 84146; 84155; 84156; 84165; 84166; 84244; 84300; 84439; 84443; 84484; 84585; 84703; 85025; 85027; 85044; 85379; 85610; 85651; 85660; 86038; 86225; 86235; 86334; 86431; 86618; 87086; 93005; 93010; 93970-TC; 99285-25; G0378; J0735; J0833; J1644; J8540